=== PATIENT | male | born 1945 | race Caucasian/White ===

== ENCOUNTER 2017-05-30 12:25 | Inpatient (IN) | payer MEDICARE, OTHER ==
[2017-05-30] VITALS (15 sets, daily range): BP systolic 121–154; BP diastolic 61–95; PULSE 89–112; RESP 20–26; TEMP 97.7–98.6; O2SAT 75–98
[~2017-05-30] VITALS: Ht 179.1 cm; Wt 107.3 kg
[2017-05-30] MEDS ORDERED: SODIUM CHLORIDE 0.9% FLUSH 10 ML FLUSH IVF PRN (12:45)
[2017-05-30] MEDS ORDERED: METF500T PO (13:02)
[2017-05-30] MEDS ORDERED: MELO15TA20 PO (13:02)
[2017-05-30] MEDS ORDERED: LISI10TA3 PO (13:02)
[2017-05-30] MEDS ORDERED: VITATAB11 PO (13:02)
[2017-05-30] MEDS ORDERED: JUICE PLUS PO (13:02)
[2017-05-30] MEDS ORDERED: VITA2000 PO (13:02)
[2017-05-30] MEDS ORDERED: GABA600T PO (13:02)
[2017-05-30] MEDS ORDERED: ASPI-516 CHEW (13:02)
[2017-05-30] MEDS ORDERED: OCUVTAB4 PO (13:02)
[2017-05-30] MEDS ORDERED: LIVA2TAB PO (13:02)
--- NOTE | 2017-05-30 13:03 | RADRPT ---
EXAM DATE/TIME: 05/30/2017 12:47 [facility] COMPARISON: No previous studies available for comparison. INDICATIONS : Chest pain with some shortness of breath. MEDICAL HISTORY : None. SURGICAL HISTORY : None. ENCOUNTER: Initial ACUITY: 1 day PAIN SCORE: 7/10 LOCATION: Bilateral upper chest FINDINGS: A single view of the chest demonstrates the lungs to be symmetrically aerated without evidence of mas s, infiltrate or effusion. The cardiomediastinal contours are unremarkable. Osseous structures are intact. There is a left-sided implantable port catheter in place with the tip projected over the supe rior vena cava. Atherosclerotic calcifications are present in the aorta. There is a calcified left hi lar lymph node. There is a calcified granuloma projected over the left lung base. CONCLUSION: No acute disease. Oh Kelly MD on May 30, 2017 at 13:00 Board Certified Radiologist. This report was verified electronically.
[2017-05-30 13:16] LABS: AUTOMATED NEUTROPHIL # 5.8 TH/MM3 (1.8-7.7); BASOPHIL % 0.5 % (0.0-2.0); EOSINOPHIL # 0.2 TH/MM3 (0-0.4); EOSINOPHIL % 2.8 % (0.0-4.0); HEMATOCRIT 43.8 % (39.0-51.0); HEMOGLOBIN 14.6 GM/DL (13.0-17.0); LYMPH % 6.9 % (9.0-44.0); LYMPHOCYTE # 0.5 TH/MM3 (1.0-4.8); MEAN CELL VOLUME 91.9 FL (80.0-100.0); MEAN CORPUSCULAR HEMOGLOBIN 30.6 PG (27.0-34.0); MEAN CORPUSCULAR HGB CONC 33.3 % (32.0-36.0); MEAN PLATELET VOLUME 8.1 FL (7.0-11.0); MONO % 8.7 % (0.0-8.0); MONOCYTE # 0.6 TH/MM3 (0-0.9); NEUT % 81.1 % (16.0-70.0); PLATELET COUNT 115 TH/MM3 (150-450); RED BLOOD COUNT 4.77 MIL/MM3 (4.50-5.90); RED CELL DISTRIBUTION WIDTH 14.1 % (11.6-17.2); WHITE BLOOD COUNT 7.1 TH/MM3 (4.0-11.0)
[2017-05-30 13:40] LABS: ALBUMIN 3.5 GM/DL (3.4-5.0); AST (GOT) 33 U/L (15-37); BICARBONATE 29.8 MEQ/L (21.0-32.0); BLOOD UREA NITROGEN 15 MG/DL (7-18); CHLORIDE 98 MEQ/L (98-107); CREATININE 0.87 MG/DL (0.60-1.30); GLOMERULAR FILTRATION RATE 87 ML/MIN (>89); GLUCOSE,RANDOM 192 MG/DL (74-106); SODIUM (NA) 136 MEQ/L (136-145)
[2017-05-30 13:41] LABS: ALT (GPT) 48 U/L (12-78)
[2017-05-30 13:45] LABS: ALKALINE PHOSPHATASE 76 U/L (45-117); TOTAL PROTEIN 6.4 GM/DL (6.4-8.2); TROPONIN I 0.13 NG/ML (0.02-0.05)
[2017-05-30 13:47] LABS: D-DIMER 11.07 MG/L FEU (0.00-0.50)
[2017-05-30] MEDS ORDERED: IOHEXOL 350 MG/ML 10 ML VIAL (for RAD DIAG) IVCONTRAST ONE (14:28)
--- NOTE | 2017-05-30 14:35 | RADRPT ---
EXAM DATE/TIME: 05/30/2017 14:23 [facility] COMPARISON: CHEST SINGLE AP, May 30, 2017, 12:47. INDICATIONS : Short of breath. IV CONTRAST: 75 cc Omnipaque 350 (iohexol) IV RADIATION DOSE: 23.28 CTDIvol (mGy) MEDICAL HISTORY : Diabetes mellitus type 2. Cardiovascular disease Lymphoma.Prostate cancer. SURGICAL HISTORY : Prostatectomy. ENCOUNTER: Initial ACUITY: 1 day PAIN SCALE: 4/10 LOCATION: Bilateral chest TECHNIQUE: Volumetric scanning of the chest was performed using a pulmonary embolism protocol MIP images were re constructed. Using automated exposure control and adjustment of the mA and/or kV according to patien t size, radiation dose was kept as low as reasonably achievable to obtain optimal diagnostic quality images. DICOM format image data is available electronically for review and comparison. Follow-up recommendations for detected pulmonary nodules are based at a minimum on nodule size and pa tient risk factors according to Fleischner Society Guidelines. FINDINGS: PULMONARY ARTERIES: There is extensive pulmonary embolization with extension across the right and left pulmonary arteries with sagittal embolization on the right extending into the lower lobe and upper lobe pulmonary arter ies and on the left extending into the lower lobe pulmonary artery. LUNGS: There is no consolidation or pneumothorax . No concerning pulmonary nodule is visualized. PLEURAE: There is no pleural thickening or pleural effusion. MEDIASTINUM: There is good visualization of the great vessels of the middle mediastinum. No evidence of mediastin al or hilar adenopathy/mass. MUSCULOSKELETAL: Within normal limits for patient age. MISCELLANEOUS: The visualized upper abdominal organs demonstrate no acute abnormality. CONCLUSION: Bilateral and saddle pulmonary emboli. These extend into all branches on the right and the left lower lobe pulmonary artery. Avery Ortiz MD on May 30, 2017 at 14:30 Board Certified Radiologist. This report was verified electronically.
[2017-05-30] MEDS ORDERED: SODIUM CHLOR 0.9% 1000 ML INJ 1,000 ML IV SCH (14:54)
[2017-05-30] MEDS ORDERED: HEPARIN-D5W 25,000 U/250 ML 250 ML IV PRN (15:00)
[2017-05-30] MEDS ORDERED: RESP: ALBUTEROL 2.5 MG/3 ML NEB (PRN) INH (15:00)
[2017-05-30] MEDS ORDERED: MISCELLANEOUS NURSING INFORMATION XX SCH ×2 (15:00→16:15)
[2017-05-30] MEDS ORDERED: SODIUM CHLORIDE 0.9% FLUSH 10 ML FLUSH IV FLUSH PRN ×2 (15:00→16:30)
[2017-05-30] MEDS ORDERED: HEPARIN SODIUM - IV 10,000 UNITS/10 ML VIAL IV ONE (15:00)
[2017-05-30] MEDS ORDERED: CHLORHEXIDINE GLUCONATE 2 % 1 PACK (2 CLOTHS) TOP PRN ×2 (15:00→16:15)
[2017-05-30] MEDS: RESP: ALBUTEROL 2.5 MG/IPRATROPIUM 0.5 MG NEB (SCH) NEB ×3 (15:45→20:56)
--- NOTE | 2017-05-30 15:54 | PD ---
HPI Chief Complaint: Respiratory Distress Time Seen by Provider: 12:32 Travel History International Travel<30 days: No Contact w/Intl Traveler<30days: No Traveled to known affect area: No History of Present Illness HPI This is a 72-year-old male who presents to the emergency department with acute onset of shortness of breath that started this morning when he was getting ready to go golfing described as difficulty breathing, constant, severe with no associated chest pain, worse with exertion. Patient did travel from [place] 3 weeks ago by car. He also has a history of Hodgkin's lymphoma and prostate cancer currently in remission. Patient does acknowledge some cramping in his calf. PFSH Past Medical History Cancer: Yes (NON-HODGKINS LYMPHOMA, PROSTATE) Cardiovascular Problems: Yes High Cholesterol: Yes Chemotherapy: Yes Diabetes: Yes Patient Takes Glucophage: Yes Diminished Hearing: No Kidney Stones: Yes Medical other: Yes (ABD HERNIA) Pneumonia: Yes Radiation Therapy: Yes Past Surgical History Other Surgery: Yes (PROSTATE REMOVED-2014, PORT PLACED) Social History Alcohol Use: No Tobacco Use: No Substance Use: No Allergies-Medications (Allergen,Severity, Reaction): Coded Allergies: Penicillins (Verified Allergy, Severe, 05/30/17) Reported Meds & Prescriptions Reported Meds & Active Scripts Active Reported [Juice Plus] 6 Tab PO DAILY Meloxicam 15 Mg Tab 15 Mg PO DAILY Livalo (Pitavastatin) 2 Mg Tab 2 Mg PO EVERY OTHER DAY Gabapentin 600 Mg Tab 600 Mg PO BID Vitamin B Complex (B-Complex Vitamins) 1 Tab 1 Tab PO BID Metformin (Metformin HCl) 500 Mg Tab 250 Mg PO BIDPC Vitamin D3 (Cholecalciferol) 2,000 Unit Cap 2,000 Units PO BID Aspirin 81 Mg Chew 81 Mg CHEW HS Preservision Areds (Multiple Vitamins W/ Minerals) 1 Tab 1 Tab PO DAILY Lisinopril 10 Mg Tab 10 Mg PO DAILY Review of Systems Except as stated in HPI: all other systems reviewed are Neg Physical Exam Narrative GENERAL: Moderate respiratory distress SKIN: Focused skin assessment warm and dry. HEAD: Atraumatic. Normocephalic. EYES: Pupils equal and round. No injection or drainage. ENT: Moist mucous membranes NECK: Trachea midline. CARDIOVASCULAR: Regular rate and rhythm. No murmur appreciated. RESPIRATORY: Tachypneic, speaking 3-4 word sentences, using accessory muscles GASTROINTESTINAL: Abdomen soft, non-tender, nondistended. MUSCULOSKELETAL: No obvious deformities. NEUROLOGICAL: Awake and alert. No obvious cranial nerve deficits. Moving all extremities. PSYCHIATRIC: Appropriate mood and affect; insight and judgment normal. Data Data Last Documented VS Vital Signs Date Time Temp Pulse Resp B/P (MAP) Pulse Ox O2 Delivery O2 Flow Rate FiO2 05/30/17 14:49 89 22 121/72 (88) 98 Nasal Cannula 4.00 05/30/17 12:29 97.7 Orders Orders Electrocardiogram (05/30/17 12:42) Complete Blood Count With Diff (05/30/17 12:42) Comprehensive Metabolic Panel (05/30/17 12:42) D-Dimer (05/30/17 12:42) Prothrombin Time / Inr (Pt) (05/30/17 12:42) Act Partial Throm Time (Ptt) (05/30/17 12:42) Troponin I (05/30/17 12:42) Chest, Single Ap (05/30/17 12:42) Ecg Monitoring (05/30/17 12:42) Bilateral Bp Monitoring (05/30/17 12:42) Iv Access Insert/Monitor (05/30/17 12:42) Oximetry (05/30/17 12:42) Oxygen Administration (05/30/17 12:42) Sodium Chloride 0.9% Flush (Ns Flush) (05/30/17 12:45) Ct Pulmonary Angiogram (05/30/17 12:42) Iohexol 350 Inj (Omnipaque 350 Inj) (05/30/17 14:28) Heparin Inj (Heparin Inj) (05/30/17 15:00) Heparin-D5w 25,000 U/250 Ml (Heparin-D5w (05/30/17 15:00) Act Partial Throm Time (Ptt) (05/30/17 14:49) Cbc No Diff, Includes Plts (05/30/17 14:49) Cbc No Diff, Includes Plts (06/02/17 06:00) Act Partial Throm Time (Ptt) (05/30/17 21:49) Occult Blood (Hemoccult) Stool (05/30/17 14:49) Echo 2d Comp With Doppler (05/30/17 ) Admit Order (Ed Use Only) (05/30/17 14:53) Labs Laboratory Tests Test 05/30/17 12:45 White Blood Count 7.1 TH/MM3 Red Blood Count 4.77 MIL/MM3 Hemoglobin 14.6 GM/DL Hematocrit 43.8 % Mean Corpuscular Volume 91.9 FL Mean Corpuscular Hemoglobin 30.6 PG Mean Corpuscular Hemoglobin Concent 33.3 % Red Cell Distribution Width 14.1 % Platelet Count 115 TH/MM3 Mean Platelet Volume 8.1 FL Neutrophils (%) (Auto) 81.1 % Lymphocytes (%) (Auto) 6.9 % Monocytes (%) (Auto) 8.7 % Eosinophils (%) (Auto) 2.8 % Basophils (%) (Auto) 0.5 % Neutrophils # (Auto) 5.8 TH/MM3 Lymphocytes # (Auto) 0.5 TH/MM3 Monocytes # (Auto) 0.6 TH/MM3 Eosinophils # (Auto) 0.2 TH/MM3 Basophils # (Auto) 0.0 TH/MM3 CBC Comment DIFF FINAL Differential Comment Prothrombin Time 10.0 SEC Prothromb Time International Ratio 1.0 RATIO Activated Partial Thromboplast Time 21.9 SEC D-Dimer Quantitative (PE/DVT) 11.07 MG/L FEU Blood Urea Nitrogen 15 MG/DL Creatinine 0.87 MG/DL Random Glucose 192 MG/DL Total Protein 6.4 GM/DL Albumin 3.5 GM/DL Calcium Level 9.0 MG/DL Alkaline Phosphatase 76 U/L Aspartate Amino Transf (AST/SGOT) 33 U/L Alanine Aminotransferase (ALT/SGPT) 48 U/L Total Bilirubin 1.0 MG/DL Sodium Level 136 MEQ/L Potassium Level 3.9 MEQ/L Chloride Level 98 MEQ/L Carbon Dioxide Level 29.8 MEQ/L Anion Gap 8 MEQ/L Estimat Glomerular Filtration Rate 87 ML/MIN Troponin I 0.13 NG/ML [facility] Medical Decision Making Medical Screen Exam Complete: Yes Emergency Medical Condition: Yes Interpretation(s) No leukocytosis Thrombocytopenia Electrolytes are reassuring Troponin is 0.13 D-dimer is 11 Last 24 hours Impressions Chest X-Ray 05/30/17 1242 Signed Impressions: Service Date/Time: Tuesday, May 30, 2017 12:47 - CONCLUSION: No acute disease. Oh Kelly MD CT Angiography 05/30/17 1242 Signed Impressions: Service Date/Time: Tuesday, May 30, 2017 14:23 - CONCLUSION: Bilateral and saddle pulmonary emboli. These extend into all branches on the right and the left lower lobe pulmonary artery. Avery Ortiz MD Differential Diagnosis Pulmonary embolism, pneumonia, pleural effusion, pneumothorax, myocardial infarction Narrative Course This is a 72-year-old male who presents to the emergency department with signs and symptoms classic for pulmonary embolism. He was placed on a monitor established. He was hypoxic and initially in moderate respiratory distress but improved with supplemental oxygen. Labs demonstrate a d-dimer of 11 and an elevated troponin. CT pulmonary angiogram demonstrates a saddle embolus. Patient was started on heparin. He will be admitted to the intensive care unit for further management. A stat echo was obtained to evaluate for right heart strain. Critical Care Narrative Aggregate critical care time was 45 minutes. Time to perform other separately billable procedures was not included in the critical care time. My time did not include minutes spent treating any other patients simultaneously or on activities that did not directly contribute to the patient's treatment. The services I provided to this patient were to treat and/or prevent clinically significant deterioration that could result in: disability, I provided critical care services requiring my management, as noted below: Chart data review, documentation time, medication orders and management, vital sign assessments/reviewing monitor data, ordering and reviewing lab tests, ordering and interpreting/reviewing x-rays and diagnostic studies, care of the patient and discussion of the patient with the admitting physicians. Physician Communication Physician Communication Discussed with Dr. Norris Diagnosis Primary Impression: Saddle pulmonary embolus Qualified Codes: I26.92 - Saddle embolus of pulmonary artery without acute cor pulmonale Admitting Information Admitting Physician Requests: Admit Mary Faust MD May 30, 2017 15:54
[2017-05-30] MEDS ORDERED: BISACODYL 10 MG SUPP RECTAL PRN (16:15)
[2017-05-30] MEDS ORDERED: MAGNESIUM HYDROXIDE SUSP 30 ML CUP PO PRN (16:15)
[2017-05-30] MEDS ORDERED: MORPHINE SULFATE 2 MG/ML INJ IV PUSH PRN (16:15)
[2017-05-30] MEDS ORDERED: SENNOSIDES 8.6 MG TAB PO PRN (16:15)
[2017-05-30] MEDS ORDERED: RESP: ALBUTEROL 2.5 MG/IPRATROPIUM 0.5 MG NEB (PRN) INH (16:15)
[2017-05-30] MEDS ORDERED: ONDANSETRON HCL 4 MG/2 ML VIAL IV PUSH PRN (16:15)
[2017-05-30] MEDS ORDERED: LACTULOSE SYRUP 20 GM/30 ML CUP PO PRN (16:15)
--- NOTE | 2017-05-30 16:19 | ECHRPT ---
Indication: Chronic pulmonary embolism CONCLUSIONS Normal left ventricular size and wall thickness. The left ventricular systolic function is normal wi th an estimated ejection fraction in the range of 60-65%. Normal wall motion. Upper normal right ventricular size with normal systolic function. There is mild tricuspid valve regurgitation. The estimated pulmonary arterial pressure is 35 mmHg. BP: / HR: 95 Rhythm: Other MEASUREMENTS (Male / Female) Normal Values Technical Quality:Fair 2D ECHO LV Diastolic Diameter PLAX 4.5 cm 4.2 - 5.9 / 3.9 - 5.3 cm LV Systolic Diameter PLAX 3.7 cm IVS Diastolic Thickness 1.2 cm 0.6 - 1.0 / 0.6 - 0.9 cm LVPW Diastolic Thickness 1.1 cm 0.6 - 1.0 / 0.6 - 0.9 cm LV Relative Wall Thickness 0.5 LVOT Diameter 2.0 cm M-MODE Aortic Root Diameter MM 3.3 cm LA Systolic Diameter MM 3.6 cm LA Ao Ratio MM 1.1 AV Cusp Separation MM 2.2 cm DOPPLER AV Peak Velocity 118.0 cm/s AV Peak Gradient 5.6 mmHg LVOT Peak Velocity 71.1 cm/s LVOT Peak Gradient 2.0 mmHg AV Area Cont Eq pk 1.9 cm TR Peak Velocity 250.0 cm/s TR Peak Gradient 25.0 mmHg Right Atrial Pressure 10.0 mmHg Pulmonary Artery Systolic Pressu 35.0 mmHg Right Ventricular Systolic Press 35.0 mmHg PV Peak Velocity 85.5 cm/s PV Peak Gradient 2.9 mmHg FINDINGS LEFT VENTRICLE Normal left ventricular size and wall thickness. The left ventricular systolic function is normal wi th an estimated ejection fraction in the range of 60-65%. Normal wall motion. RIGHT VENTRICLE Upper normal right ventricular size with normal systolic function. LEFT ATRIUM The left atrial size is normal. RIGHT ATRIUM The right atrial size is normal. ATRIAL SEPTUM Normal atrial septal thickness without atrial level shunting by limited color doppler interrogation. AORTA The aortic root and proximal ascending aorta are normal in size on limited imaging. MITRAL VALVE Structurally normal mitral valve. No mitral valve stenosis or regurgitation. AORTIC VALVE Trileaflet aortic valve. No aortic valve stenosis or regurgitation. TRICUSPID VALVE There is mild tricuspid valve regurgitation. The estimated pulmonary arterial pressure is 35 mmHg. PULMONARY VALVE No pulmonary valve regurgitation or stenosis. VESSELS The inferior vena cava is normal in size. [id number]* PERICARDIUM There is a small pericardial effusion present. Siddhartha Merida MD (Electronically Signed) Final Date:30 May 2017 16:18
[2017-05-30] MEDS ORDERED: ALTEPLASE INJ 50 MG in WATER STERILE FOR INJ 100 ML IV ONE ×2 (16:30→17:45)
[2017-05-30] MEDS ORDERED: MISCELLANEOUS NURSING INFORMATION OTHER PRN (16:30)
[2017-05-30] MEDS: SODIUM CHLOR 0.9% 1000 ML INJ 1,000 ML IV SCH ×2 (16:30→18:30)
--- NOTE | 2017-05-30 17:02 | HHI.HP ---
HPI Service Critical Care Medicine Primary Care Physician Non-Staff Admission Diagnosis saddle pulmonary embolus Diagnosis: (1) Saddle pulmonary embolus Diagnosis: Principal (2) Right ventricular dilation, secondary Diagnosis: Principal (3) Tricuspid regurgitation Diagnosis: Principal Chief Complaint: Near syncope, SOB. Travel History International Travel<30 Days: No Contact w/Intl Traveler <30 Da: No Traveled to Known Affected Are: No History of Present Illness 72 y/o man developed near syncope this morning associated with new shortness of breath with exertion. Arrived to ED normotensive. CTA chest reveals submassive saddle embolism with tails involving 4 of 5 lung lobes. The right ventricle is dilated and ECHO shows tricuspid regurgitation. Trop minimally elevated. D- Dimer 11. Review of Systems ROS SOB with walking. No chest pain. Left calf cramping. Past Family Social History Allergies: Coded Allergies: Penicillins (Verified Allergy, Severe, 05/30/17) Past Medical History Past Medical History Cancer: Yes (NON-HODGKINS LYMPHOMA, PROSTATE) Cardiovascular Problems: Yes High Cholesterol: Yes Chemotherapy: Yes Diabetes: Yes Patient Takes Glucophage: Yes Diminished Hearing: No Kidney Stones: Yes Medical other: Yes (ABD HERNIA) Pneumonia: Yes Radiation Therapy: Yes Past Surgical History Other Surgery: Yes (PROSTATE REMOVED-2014, PORT PLACED) Social History Alcohol Use: No Tobacco Use: No Substance Use: No Allergies-Medications Allergies-Medications (Allergen,Severity, Reaction): Coded Allergies: Penicillins (Verified Allergy, Severe, 05/30/17) Reported Meds & Prescriptions Reported Meds & Active Scripts Active Reported [Juice Plus] 6 Tab PO DAILY Meloxicam 15 Mg Tab 15 Mg PO DAILY Livalo (Pitavastatin) 2 Mg Tab 2 Mg PO EVERY OTHER DAY Gabapentin 600 Mg Tab 600 Mg PO BID Vitamin B Complex (B-Complex Vitamins) 1 Tab 1 Tab PO BID Metformin (Metformin HCl) 500 Mg Tab 250 Mg PO BIDPC Vitamin D3 (Cholecalciferol) 2,000 Unit Cap 2,000 Units PO BID Aspirin 81 Mg Chew 81 Mg CHEW HS Preservision Areds (Multiple Vitamins W/ Minerals) 1 Tab 1 Tab PO DAILY Lisinopril 10 Mg Tab 10 Mg PO DAILY Physical Exam Vital Signs Vital Signs Date Time Temp Pulse Resp B/P (MAP) Pulse Ox O2 Delivery O2 Flow Rate FiO2 05/30/17 16:34 96 Nasal Cannula 5.00 05/30/17 16:10 05/30/17 16:00 92 23 154/92 (112) 98 Nasal Cannula 4.00 05/30/17 15:00 94 21 126/81 (96) 98 Nasal Cannula 4.00 05/30/17 14:49 89 22 121/72 (88) 98 Nasal Cannula 4.00 05/30/17 14:41 75 Room Air 05/30/17 13:00 94 22 126/71 (89) 96 Nasal Cannula 4.00 05/30/17 12:54 95 25 130/95 (107) 95 Nasal Cannula 4.00 130/84 (99) 05/30/17 12:50 Nasal Cannula 4.00 05/30/17 12:50 88 Room Air 05/30/17 12:40 99 26 128/91 (103) 96 Nasal Cannula 4.00 05/30/17 12:35 26 88 Room Air 05/30/17 12:29 97.7 106 24 150/79 (102) 88 Physical Exam Gen: Calm Head: Normal. Neck: Supple. Lungs: Clear. Heart: NL S1S2, RRR, neck veins are full. Abdomen: Soft, nondistended. No guarding. Extremities: Warm, well perfused. Neuro: O X 3, alert, M/S intact Laboratory Laboratory Tests Test 05/30/17 12:45 White Blood Count 7.1 Red Blood Count 4.77 Hemoglobin 14.6 Hematocrit 43.8 Mean Corpuscular Volume 91.9 Mean Corpuscular Hemoglobin 30.6 Mean Corpuscular Hemoglobin Concent 33.3 Red Cell Distribution Width 14.1 Platelet Count 115 Mean Platelet Volume 8.1 Neutrophils (%) (Auto) 81.1 Lymphocytes (%) (Auto) 6.9 Monocytes (%) (Auto) 8.7 Eosinophils (%) (Auto) 2.8 Basophils (%) (Auto) 0.5 Neutrophils # (Auto) 5.8 Lymphocytes # (Auto) 0.5 Monocytes # (Auto) 0.6 Eosinophils # (Auto) 0.2 Basophils # (Auto) 0.0 CBC Comment DIFF FINAL Differential Comment Prothrombin Time 10.0 Prothromb Time International Ratio 1.0 Activated Partial Thromboplast Time 21.9 D-Dimer Quantitative (PE/DVT) 11.07 Blood Urea Nitrogen 15 Creatinine 0.87 Random Glucose 192 Total Protein 6.4 Albumin 3.5 Calcium Level 9.0 Alkaline Phosphatase 76 Aspartate Amino Transf (AST/SGOT) 33 Alanine Aminotransferase (ALT/SGPT) 48 Total Bilirubin 1.0 Sodium Level 136 Potassium Level 3.9 Chloride Level 98 Carbon Dioxide Level 29.8 Anion Gap 8 Estimat Glomerular Filtration Rate 87 Troponin I 0.13 Result Diagram: 05/30/17 1245 05/30/17 1245 Caprini VTE Risk Assessment Caprini VTE Risk Assessment: Mod/High Risk (score >= 2) Caprini Risk Assessment Model Point Value = 1 Point Value = 2 Point Value = 3 Point Value = 5 Age 41-60 Minor surgery BMI > 25 kg/m2 Swollen legs Varicose veins or History of unexplained or recurrent spontaneous Oral contraceptives or hormone replacement Sepsis (< 1 month) Serious lung disease, including pneumonia (< 1 month) Abnormal pulmonary function Acute myocardial infarction Congestive heart failure (< 1 month) History of inflammatory bowel disease Medical patient at bed rest Age 61-74 Arthroscopic surgery Major open surgery (> 45 min) Laparoscopic surgery (> 45 min) Malignancy Confined to bed (> 72 hours) Immobilizing plaster cast Central venous access Age >= 75 History of VTE Family history of VTE Factor V Leiden Prothrombin [id number] Lupus anticoagulant Anticardiolipin antibodies Elevated serum homocysteine Heparin-induced thrombocytopenia Other congenital or acquired thrombophilia Stroke (< 1 month) Elective arthroplasty Hip, pelvis, or leg fracture Acute spinal cord injury (< 1 month) Prophylaxis Regimen Total Risk Factor Score Risk Level Prophylaxis Regimen 0-1 Low Early ambulation 2 Moderate Order ONE of the following: *Sequential Compression Device (SCD) *Heparin 5000 units SQ BID 3-4 Higher Order ONE of the following medications: *Heparin 5000 units SQ TID *Enoxaparin/Lovenox 40 mg SQ daily (WT < 150 kg, CrCl > 30 mL/min) *Enoxaparin/Lovenox 30 mg SQ daily (WT < 150 kg, CrCl > 10-29 mL/min) *Enoxaparin/Lovenox 30 mg SQ BID (WT < 150 kg, CrCl > 30 mL/min) AND/OR *Sequential Compression Device (SCD) 5 or more Highest Order ONE of the following medications: *Heparin 5000 units SQ TID (Preferred with Epidurals) *Enoxaparin/Lovenox 40 mg SQ daily (WT < 150 kg, CrCl > 30 mL/min) *Enoxaparin/Lovenox 30 mg SQ daily (WT < 150 kg, CrCl > 10-29 mL/min) *Enoxaparin/Lovenox 30 mg SQ BID (WT < 150 kg, CrCl > 30 mL/min) AND *Sequential Compression Device (SCD) Assessment and Plan Assessment and Plan Assessment: 1. Submassive saddle pulmonary embolus. 2. RV strain. 3. Tricuspid regurgitation. 4. DM, 2 Plan: 1. Full anticoagulation with heparin. 2. tPA 50 mg iv by protocol. 3. Pepcid bid. 4. Bed rest. 5. No SCDs. 6. Follow APTT - maintain 50 - 80 secs. 7. Reduce heparin to 1000 units/hr during tPA administration. 8. LE ultrasound. Overall impression: Critically ill with acute submassive pulmonary embolism, saddle type. No contraindications for 50% dose thrombolytic. Risks including fatal brain bleed discussed in detail with patient and . They accept. Critical care 47 mins Problem Qualifiers (1) Saddle pulmonary embolus: Qualified Codes: I26.02 - Saddle embolus of pulmonary artery with acute cor pulmonale (2) Tricuspid regurgitation: Qualified Codes: I36.1 - Nonrheumatic tricuspid (valve) insufficiency Parveen Scott MD May 30, 2017 17:02
--- NOTE | 2017-05-30 17:53 | RADRPT ---
EXAM DATE/TIME: 05/30/2017 17:10 [facility] COMPARISON: CT PULMONARY ANGIOGRAM, May 30, 2017, 14:23. INDICATIONS : Bilateral leg swelling. MEDICAL HISTORY : Hypercholesterolemia. Glasses. Kidney stones. Diabetes. Non-hodgkins lymphoma. Prostate cancer. Tracy motherapy. Hernia. SURGICAL HISTORY : Prostatectomy. Port placement. ENCOUNTER: Initial ACUITY: 2 day PAIN SCORE: 4/10 LOCATION: Bilateral legs. TECHNIQUE: Venous ultrasound of the left and right leg was performed from the inguinal ligament to the proximal calf. Real-time, color Doppler and spectral tracing, compression and augmentation techniques were us ed. FINDINGS: RIGHT LEG: There is occlusive thrombus in the peroneal and posterior tibial vein LEFT LEG: There is normal compressibility of the deep venous system from the inguinal region to the proximal ca lf. No echogenic clot is seen in the lumen of the common femoral, femoral, popliteal, and posterior tibial veins. There is a normal response of the venous system to proximal and distal augmentation an d respiration. CONCLUSION: Thrombus right peroneal and posterior tibial vein. Avery Ortiz MD on May 30, 2017 at 17:49 Board Certified Radiologist. This report was verified electronically.
[2017-05-30] MEDS ORDERED: PILL SPLITTER OTHER PRN (18:00)
[2017-05-30] MEDS ORDERED: metFORMIN HCL 500 MG TAB PO SCH (18:00)
[2017-05-30] MEDS: HEPARIN-D5W 25,000 U/250 ML 250 ML IV PRN (19:00)
[2017-05-30 19:11] LABS: HEMATOCRIT 44.3 % (39.0-51.0); HEMOGLOBIN 14.7 GM/DL (13.0-17.0); MEAN CELL VOLUME 91.3 FL (80.0-100.0); MEAN CORPUSCULAR HEMOGLOBIN 30.3 PG (27.0-34.0); MEAN CORPUSCULAR HGB CONC 33.2 % (32.0-36.0); MEAN PLATELET VOLUME 8.2 FL (7.0-11.0); PLATELET COUNT 108 TH/MM3 (150-450); RED BLOOD COUNT 4.85 MIL/MM3 (4.50-5.90); RED CELL DISTRIBUTION WIDTH 14.4 % (11.6-17.2); WHITE BLOOD COUNT 7.9 TH/MM3 (4.0-11.0)
[2017-05-30] MEDS: CHLORHEXIDINE 0.12% (ORAL KIT) 15 ML CUP MT SCH (20:00)
[2017-05-30] MEDS: FAMOTIDINE 20 MG/2 ML VIAL IV PUSH SCH (20:56)
[2017-05-30] MEDS: GABAPENTIN 300 MG CAP PO SCH (20:57)
[2017-05-30] MEDS: SODIUM CHLORIDE 0.9% FLUSH 10 ML FLUSH IV FLUSH SCH (21:00)
[2017-05-30] MEDS ORDERED: FAMOTIDINE 20 MG/2 ML VIAL IV PUSH SCH (21:00)
[2017-05-30] MEDS ORDERED: SODIUM CHLORIDE 0.9% FLUSH 10 ML FLUSH IV FLUSH SCH (21:00)
[2017-05-30] MEDS: VITAMIN B COMPLEX/VIT C TAB PO SCH (21:00)
[2017-05-30] MEDS: CHOLECALCIFEROL (VIT D3) 1000 UNIT TAB PO SCH (21:05)
[2017-05-30] MEDS: DOCUSATE SODIUM 50 MG/SENNA 8.6 MG TAB PO SCH (21:05)
[2017-05-30] MEDS: ACETAMINOPHEN/HYDROcodone 325 MG/5 MG TAB PO PRN (21:39)
[2017-05-30 21:42] LABS: MAGNESIUM 2.1 MG/DL (1.5-2.5)
[2017-05-30 22:02] LABS: TROPONIN I 0.99 NG/ML (0.02-0.05)
[2017-05-31] VITALS (14 sets, daily range): BP systolic 105–154; BP diastolic 50–72; PULSE 74–101; RESP 20–43; TEMP 98.2–98.7; O2SAT 88–94
[2017-05-31] MEDS: SODIUM CHLOR 0.9% 1000 ML INJ 1,000 ML IV SCH ×4 (02:15→12:10)
[2017-05-31 03:15] LABS: AUTOMATED NEUTROPHIL # 6.7 TH/MM3 (1.8-7.7); BASOPHIL # 0.1 TH/MM3 (0-0.2); BASOPHIL % 0.9 % (0.0-2.0); EOSINOPHIL # 0.2 TH/MM3 (0-0.4); EOSINOPHIL % 2.2 % (0.0-4.0); HEMATOCRIT 40.7 % (39.0-51.0); HEMOGLOBIN 13.4 GM/DL (13.0-17.0); LYMPH % 6.1 % (9.0-44.0); LYMPHOCYTE # 0.5 TH/MM3 (1.0-4.8); MEAN CELL VOLUME 91.3 FL (80.0-100.0); MEAN CORPUSCULAR HEMOGLOBIN 30.1 PG (27.0-34.0); MEAN CORPUSCULAR HGB CONC 32.9 % (32.0-36.0); MEAN PLATELET VOLUME 7.5 FL (7.0-11.0); MONO % 9.4 % (0.0-8.0); MONOCYTE # 0.8 TH/MM3 (0-0.9); NEUT % 81.4 % (16.0-70.0); PLATELET COUNT 109 TH/MM3 (150-450); RED BLOOD COUNT 4.46 MIL/MM3 (4.50-5.90); RED CELL DISTRIBUTION WIDTH 14.2 % (11.6-17.2); WHITE BLOOD COUNT 8.2 TH/MM3 (4.0-11.0)
[2017-05-31] MEDS: RESP: ALBUTEROL 2.5 MG/IPRATROPIUM 0.5 MG NEB (SCH) NEB ×4 (03:32→21:14)
[2017-05-31 03:36] LABS: PROTHROMBIN TIME - PATIENT 10.3 SEC (9.8-11.6)
[2017-05-31 03:40] LABS: ALBUMIN 2.9 GM/DL (3.4-5.0); ALKALINE PHOSPHATASE 67 U/L (45-117); ALT (GPT) 38 U/L (12-78); AST (GOT) 24 U/L (15-37); BICARBONATE 31.7 MEQ/L (21.0-32.0); BLOOD UREA NITROGEN 9 MG/DL (7-18); CALCIUM 8.2 MG/DL (8.5-10.1); CHLORIDE 104 MEQ/L (98-107); CREATININE 0.73 MG/DL (0.60-1.30); GLOMERULAR FILTRATION RATE 106 ML/MIN (>89); GLUCOSE,RANDOM 168 MG/DL (74-106); SODIUM (NA) 142 MEQ/L (136-145); TOTAL BILIRUBIN ADULT 0.8 MG/DL (0.2-1.0); TOTAL PROTEIN 5.7 GM/DL (6.4-8.2)
[2017-05-31] MEDS ORDERED: CHLORHEXIDINE GLUCONATE 2 % 1 PACK (2 CLOTHS) TOP SCH (04:00)
[2017-05-31] MEDS: CHLORHEXIDINE GLUCONATE 2 % 1 PACK (2 CLOTHS) TOP SCH (04:00)
[2017-05-31] MEDS: CHLORHEXIDINE 0.12% (ORAL KIT) 15 ML CUP MT SCH ×2 (08:00→20:00)
--- NOTE | 2017-05-31 10:06 | HHI.CCPN ---
Subjective Remarks/Hospital Course 72 y/o man developed near syncope this morning associated with new shortness of breath with exertion. Arrived to ED normotensive. CTA chest reveals submassive saddle embolism with tails involving 4 of 5 lung lobes. The right ventricle is dilated and ECHO shows tricuspid regurgitation. Trop minimally elevated. D- Dimer 11. 05/31: Received tPA last evening, well tolerated. Continue heparin gtt and start coumadin or TSOAC, mobilize to chair. He still requires supplemental O2; may rescan him tomorrow if creatinine is ok. Objective Vital Signs Date Time Temp Pulse Resp B/P (MAP) Pulse Ox O2 Delivery O2 Flow Rate FiO2 05/31/17 09:13 92 Nasal Cannula 4.50 05/31/17 06:00 78 05/31/17 04:00 98.6 26 120/54 (76) Intake and Output 05/31/17 05/31/17 06/01/17 08:00 16:00 00:00 Intake Total 720 ml Output Total 1400 ml Balance -680 ml Result Diagram: 05/31/17 0259 05/31/17 0259 Other Results Laboratory Tests Test 05/30/17 15:28 Blood Gas Puncture Site RT RADIAL Blood Gas Patient Temperature 98.6 Blood Gas HCO3 28 mmol/L (22-26) Blood Gas Base Excess 3.1 mmol/L (-2-2) Blood Gas Oxygen Saturation 96 % (90-100) Arterial Blood pH 7.37 (7.380-7.420) Arterial Blood Partial Pressure CO2 49 mmHg (38-42) Arterial Blood Partial Pressure O2 105 mmHG (61-120) Arterial Blood Oxygen Content 19.2 Vol % (12.0-20.0) Arterial Blood Carboxyhemoglobin 1.3 % (0-4) Arterial Blood Methemoglobin 0.7 % (0-2) Blood Gas Hemoglobin 14.1 G/DL (12.0-16.0) Oxygen Delivery Device NASAL CANNULA Blood Gas Liter Flow 4 L/M Objective Remarks Gen: Calm Head: Normal. Neck: Supple. Airway patent. Lungs: Clear. No wheezes or crackles. Heart: NL S1S2, RRR, neck veins are full. Abdomen: Soft, nondistended. No guarding. BS active. Extremities: Warm, well perfused. Neuro: O X 3, alert, M/S intact A/P Assessment and Plan Assessment: 1. Submassive saddle pulmonary embolus. 2. RV strain. 3. Tricuspid regurgitation. 4. DM, 2 5. RLE DVT. Plan: 1. Full anticoagulation with heparin. 2. tPA 50 mg iv by protocol -> done 3. Pepcid bid. 4. Bed rest. 5. No SCDs. 6. Follow APTT - maintain 50 - 80 secs. 7. Reduce heparin to 1000 units/hr during tPA administration. 8. LE ultrasound. 9. Start Coumadin Overall impression: Remains critically ill with following tPA treatment for acute submassive pulmonary embolism, saddle type. Oxygenation still impaired, may need to restudy. Continue heparin infusion. Critical care 43 mins Parveen Scott MD May 31, 2017 10:06
[2017-05-31] MEDS ORDERED: GLUCAGON 1 MG/ML VIAL OTHER PRN (10:15)
[2017-05-31] MEDS ORDERED: DEXTROSE 50% IN WATER 50 ML VIAL(D50) IV PUSH PRN (10:15)
[2017-05-31] MEDS: SODIUM CHLORIDE 0.9% FLUSH 10 ML FLUSH IV FLUSH SCH ×2 (10:39→20:47)
[2017-05-31] MEDS: FAMOTIDINE 20 MG/2 ML VIAL IV PUSH SCH (10:39)
[2017-05-31] MEDS: VITAMIN B COMPLEX/VIT C TAB PO SCH ×2 (10:40→20:46)
[2017-05-31] MEDS: GABAPENTIN 300 MG CAP PO SCH ×2 (10:40→20:47)
[2017-05-31] MEDS: MELOXICAM 15 MG TAB PO SCH (10:40)
[2017-05-31] MEDS: LISINOPRIL 10 MG TAB PO SCH (10:41)
[2017-05-31] MEDS: CHOLECALCIFEROL (VIT D3) 1000 UNIT TAB PO SCH ×2 (10:41→20:47)
[2017-05-31] MEDS: DOCUSATE SODIUM 50 MG/SENNA 8.6 MG TAB PO SCH ×2 (10:41→20:47)
[2017-05-31] MEDS: MULTIVITAMIN-OPHTHALMIC 1 TAB PO SCH (10:41)
[2017-05-31] MEDS: ACETAMINOPHEN 325 MG TAB PO PRN ×2 (10:41→18:14)
[2017-05-31] MEDS: INSULIN ASPART SUPPLEMENTAL SCALE SQ SCH ×3 (12:00→20:48)
--- NOTE | 2017-05-31 13:05 | EKG ---
Date Performed: 05/30/2017 Time Performed: 12:37:14 PTAGE: 72 years EKG: Sinus rhythm WITH MARKED SINUS ARRHYTHMIA RIGHT BUNDLE BRANCH BLOCK ABNORMAL ECG NO PREVIOUS TRACING DOCTOR: Angel Reeves Interpretating Date/Time 05/31/2017 13:03:52
[2017-05-31] MEDS ORDERED: HEPARIN SODIUM - SQ 10,000 UNITS/ML VIAL SQ ONE (13:45)
[2017-05-31] MEDS ORDERED: HEPARIN SODIUM - IV 10,000 UNITS/10 ML VIAL IV ONE (15:00)
[2017-05-31] MEDS: HEPARIN-D5W 25,000 U/250 ML 250 ML IV PRN (15:45)
[2017-05-31] MEDS ORDERED: WARFARIN SOD 7.5 MG TAB PO SCH (16:00)
[2017-05-31] MEDS ORDERED: ARTIFICIAL TEARS OPTH SOLN 15 ML BTL EACH EYE PRN (16:15)
[2017-05-31] MEDS ORDERED: HEPARIN-D5W 25,000 U/250 ML 250 ML IV PRN (17:15)
[2017-05-31] MEDS: FAMOTIDINE 20 MG TAB PO SCH (20:47)
[2017-05-31] MEDS ORDERED: HEPARIN SODIUM - IV 10,000 UNITS/10 ML VIAL IV PUSH PRN (23:15)
[2017-05-31] MEDS ORDERED: HEPARIN - 10,000 UNITS/ML IV ADDITIVE IV PUSH PRN (23:15)
[2017-06-01] VITALS (14 sets, daily range): BP systolic 106–152; BP diastolic 61–78; PULSE 61–94; RESP 19–25; TEMP 98.4–99.6; O2SAT 91–98
[2017-06-01 03:38] LABS: BICARBONATE 29.9 MEQ/L (21.0-32.0); CREATININE 0.76 MG/DL (0.60-1.30)
[2017-06-01 03:42] LABS: TROPONIN I 0.14 NG/ML (0.02-0.05)
[2017-06-01] MEDS: CHLORHEXIDINE GLUCONATE 2 % 1 PACK (2 CLOTHS) TOP SCH (04:00)
[2017-06-01] MEDS: RESP: ALBUTEROL 2.5 MG/IPRATROPIUM 0.5 MG NEB (SCH) NEB ×4 (04:00→22:16)
[2017-06-01] MEDS: SODIUM CHLOR 0.9% 1000 ML INJ 1,000 ML IV SCH ×2 (06:44→16:18)
[2017-06-01] MEDS: HEPARIN-D5W 25,000 U/250 ML 250 ML IV PRN (06:46)
--- NOTE | 2017-06-01 07:36 | HHI.CCPN ---
Subjective Remarks/Hospital Course 72 y/o man developed near syncope this morning associated with new shortness of breath with exertion. Arrived to ED normotensive. CTA chest reveals submassive saddle embolism with tails involving 4 of 5 lung lobes. The right ventricle is dilated and ECHO shows tricuspid regurgitation. Trop minimally elevated. D- Dimer 11. 05/31: Received tPA last evening, well tolerated. Continue heparin gtt and start coumadin or TSOAC, mobilize to chair. He still requires supplemental O2; may rescan him tomorrow if creatinine is ok. 06/01: Persistent hypoxemia is worrisome for residual pulmonary thrombus. I'll get CTA lungs now, may need catheter directed therapy. APTT is therapeutic. He has never had chest pain throughout this illness. New atrial bigeminy, add beta vicente. Objective Vital Signs Date Time Temp Pulse Resp B/P (MAP) Pulse Ox O2 Delivery O2 Flow Rate FiO2 06/01/17 06:00 61 06/01/17 04:00 98.4 19 110/64 (79) 94 05/31/17 21:14 Nasal Cannula 4.50 Intake and Output 06/01/17 06/01/17 06/02/17 08:00 16:00 00:00 Output Total 900 ml Balance -900 ml Result Diagram: 05/31/179 06/01/17 0250 Objective Remarks Gen: Calm Head: Normal. Neck: Supple. Airway patent. Lungs: Clear. No wheezes or crackles. Mildly labored. Heart: NL S1S2, RRR, neck veins are full. No m,r. Abdomen: Soft, nondistended. No guarding. BS active. Extremities: Warm, well perfused. No edema. Neuro: O X 3, alert, M/S intact. Conversant. A/P Assessment and Plan Assessment: 1. Submassive saddle pulmonary embolus. 2. RV strain. 3. Tricuspid regurgitation. 4. DM, 2 5. RLE DVT. Plan: 1. Full anticoagulation with heparin. 2. tPA 50 mg iv by protocol -> done 3. Pepcid bid. 4. Bed rest. 5. No SCDs. 6. Follow APTT - maintain 40 - 80 secs. 7. Reduce heparin to 1000 units/hr during tPA administration -> resume full dose after. 8. LE ultrasound. 9. Hold oral anticoagulant until hypoxemia resolved. Overall impression: Remains critically ill with following tPA treatment for acute submassive pulmonary embolism, saddle type. Oxygenation remains impaired and thrombus persists, need to restudy. Continue heparin infusion. Consider catheter directed therapy. Discussed with Dr. Jad Flores. Indications, risks (including bleeding and ) and benefits of catheter directed lysis discussed in detail with patient and his . They accept risks and wish for us to proceed. Critical care 45 mins Parveen Scott MD Jun 01, 2017 07:36
[2017-06-01] MEDS ORDERED: PILL SPLITTER OTHER PRN (07:45)
[2017-06-01] MEDS ORDERED: IOHEXOL 350 MG/ML 10 ML VIAL (for RAD DIAG) IVCONTRAST ONE (07:53)
[2017-06-01] MEDS: INSULIN ASPART SUPPLEMENTAL SCALE SQ SCH ×4 (08:00→21:41)
[2017-06-01] MEDS: CHLORHEXIDINE 0.12% (ORAL KIT) 15 ML CUP MT SCH ×2 (08:00→20:00)
--- NOTE | 2017-06-01 08:14 | RADRPT ---
EXAM DATE/TIME: 06/01/2017 07:42 [facility] COMPARISON: No previous studies available for comparison. INDICATIONS : Post TPA for saddle embolism hypoxemia. IV CONTRAST: 66 cc Omnipaque 350 (iohexol) IV RADIATION DOSE: 10.87 CTDIvol (mGy) ; Patient body habitus MEDICAL HISTORY : Cardiovascular disease. Hypercholesterolemia. Renal calculi.Diabetes, prostate ca, chemo, rdiation,sl eep apnea SURGICAL HISTORY : Hernia ENCOUNTER: Subsequent ACUITY: 1 day PAIN SCALE: 0/10 LOCATION: chest TECHNIQUE: Volumetric scanning of the chest was performed using a pulmonary embolism protocol MIP images were re constructed. Using automated exposure control and adjustment of the mA and/or kV according to patien t size, radiation dose was kept as low as reasonably achievable to obtain optimal diagnostic quality images. DICOM format image data is available electronically for review and comparison. Follow-up recommendations for detected pulmonary nodules are based at a minimum on nodule size and pa tient risk factors according to Fleischner Society Guidelines. FINDINGS: There is extensive PE involving the main pulmonary arteries and extending into right upper lobe, bilateral lower lobes right middle lobe branches. Calcified left hilar lymph node is identified. The re is a calcified granuloma left lower lobe and focal hazy parenchymal process is seen in the right u pper lobe could be inflammatory. Underlying COPD is identified. CONCLUSION: Extensive bilateral pulmonary bolus. Vee Schulz MD on June 01, 2017 at 8:10 Board Certified Radiologist. This report was verified electronically.
[2017-06-01] MEDS: DOCUSATE SODIUM 50 MG/SENNA 8.6 MG TAB PO SCH ×2 (09:00→21:18)
[2017-06-01] MEDS: MULTIVITAMIN-OPHTHALMIC 1 TAB PO SCH (09:17)
[2017-06-01] MEDS: FAMOTIDINE 20 MG TAB PO SCH ×2 (09:17→21:17)
[2017-06-01] MEDS: METOPROLOL TARTRATE 25 MG TAB PO SCH ×2 (09:17→21:18)
[2017-06-01] MEDS: SODIUM CHLORIDE 0.9% FLUSH 10 ML FLUSH IV FLUSH SCH ×2 (09:17→21:00)
[2017-06-01] MEDS: MELOXICAM 15 MG TAB PO SCH (09:17)
[2017-06-01] MEDS: GABAPENTIN 300 MG CAP PO SCH ×2 (09:17→21:17)
[2017-06-01] MEDS: VITAMIN B COMPLEX/VIT C TAB PO SCH ×2 (09:17→21:18)
[2017-06-01] MEDS: CHOLECALCIFEROL (VIT D3) 1000 UNIT TAB PO SCH ×2 (09:17→21:17)
[2017-06-01] MEDS: PRAVASTATIN SOD 40 MG TAB PO SCH (09:18)
[2017-06-01] MEDS: LISINOPRIL 10 MG TAB PO SCH (09:18)
[2017-06-01] MEDS ORDERED: MIDAZOLAM HCL 2 MG/2 ML VIAL ONE (11:17)
[2017-06-01] MEDS ORDERED: STERILE WATER FOR INJECTION 10 ML VIAL ONE ×2 (11:58→12:31)
[2017-06-01] MEDS ORDERED: ALTEPLASE RECOMBINANT 2 MG VIAL INTRACATH ONE ×2 (12:40)
[2017-06-01] MEDS ORDERED: IOHEXOL 350 MG/ML 50 ML BTL (for RAD DIAG) IVCONTRAST ONE (12:40)
--- NOTE | 2017-06-01 12:47 | PD.RAD ---
Post Procedure Progress Note Pre Procedure Diagnosis: (1) Right ventricular dilation, secondary (2) Saddle pulmonary embolus Post Procedure Diagnosis: (1) Right ventricular dilation, secondary (2) Saddle pulmonary embolus Procedure Date: Jun 01, 2017 Supervising Radiologist: Michoacano Flores Estimated blood loss: 2cc Anesthesia: Local, Conscious Sedation Plan of Activity Patient Condition: Fair Additional Comments: 72y/o with extensive pulmonary embolus. PT failed systemic TPA infusion. Extensive thrombus noted on follow up CTA. Pt. is oxygen dependant on 5 liters with right ventricular dilation. Crossing 4 Kenyan infusion catheters Placed in the pulmonary arteries. Angio demonstrates continued extensive clot. TPA infusion initiated at 4mg/hr---2mg/hr per side. Will reduce to total dose of 2mg/hr in 4 hours. Case discussed with Dr. Rudd. See PACS Report for procedural detail/treatment Michoacano Flores MD Jun 01, 2017 12:47
--- NOTE | 2017-06-01 12:50 | EKG ---
Date Performed: 06/01/2017 Time Performed: 07:09:44 PTAGE: 72 years EKG: Sinus rhythm with PAC(s). Right bundle branch block Abnormal ECG Compared to PREVIOUS TRACING , ectopy is more frequent. PREVIOUS TRACIN05/30/2017 12.37.14 DOCTOR: Angel Reeves Interpretating Date/Time 06/01/2017 12:49:17
[2017-06-01] MEDS: HEPARIN-D5W 25,000 U/250 ML 250 ML IV SCH ×2 (14:15→19:00)
[2017-06-01] MEDS: Intra-Venous SODIUM CHLORIDE 0.9% IV LINE 1000 ML IV SCH (14:15)
[2017-06-01] MEDS ORDERED: Intra-Venous HEPARIN 1,000 UNITS/500 ML NS (PRN) IV ×2 (14:15)
[2017-06-01 15:54] LABS: AUTOMATED NEUTROPHIL # 6.1 TH/MM3 (1.8-7.7); BASOPHIL # 0.1 TH/MM3 (0-0.2); BASOPHIL % 0.8 % (0.0-2.0); EOSINOPHIL # 0.2 TH/MM3 (0-0.4); EOSINOPHIL % 2.8 % (0.0-4.0); HEMATOCRIT 38.3 % (39.0-51.0); HEMOGLOBIN 12.8 GM/DL (13.0-17.0); LYMPHOCYTE # 0.4 TH/MM3 (1.0-4.8); MEAN CELL VOLUME 92.2 FL (80.0-100.0); MEAN CORPUSCULAR HEMOGLOBIN 30.8 PG (27.0-34.0); MEAN CORPUSCULAR HGB CONC 33.4 % (32.0-36.0); MEAN PLATELET VOLUME 7.8 FL (7.0-11.0); MONO % 5.8 % (0.0-8.0); MONOCYTE # 0.4 TH/MM3 (0-0.9); NEUT % 84.6 % (16.0-70.0); PLATELET COUNT 120 TH/MM3 (150-450); RED BLOOD COUNT 4.16 MIL/MM3 (4.50-5.90); RED CELL DISTRIBUTION WIDTH 14.3 % (11.6-17.2); WHITE BLOOD COUNT 7.2 TH/MM3 (4.0-11.0)
[2017-06-01] MEDS: Intra-Venous ALTEPLASE 10 MG/500 ML NS IV PRN ×6 (18:00→19:01)
[2017-06-01] MEDS: ACETAMINOPHEN/HYDROcodone 325 MG/5 MG TAB PO PRN (19:22)
[2017-06-01 20:01] LABS: AUTOMATED NEUTROPHIL # 5.8 TH/MM3 (1.8-7.7); BASOPHIL % 0.7 % (0.0-2.0); EOSINOPHIL # 0.2 TH/MM3 (0-0.4); EOSINOPHIL % 2.5 % (0.0-4.0); HEMATOCRIT 35.9 % (39.0-51.0); HEMOGLOBIN 11.9 GM/DL (13.0-17.0); LYMPH % 5.6 % (9.0-44.0); LYMPHOCYTE # 0.4 TH/MM3 (1.0-4.8); MEAN CELL VOLUME 91.6 FL (80.0-100.0); MEAN CORPUSCULAR HEMOGLOBIN 30.2 PG (27.0-34.0); MEAN PLATELET VOLUME 7.7 FL (7.0-11.0); MONO % 8.5 % (0.0-8.0); MONOCYTE # 0.6 TH/MM3 (0-0.9); NEUT % 82.7 % (16.0-70.0); PLATELET COUNT 106 TH/MM3 (150-450); RED BLOOD COUNT 3.92 MIL/MM3 (4.50-5.90); RED CELL DISTRIBUTION WIDTH 14.4 % (11.6-17.2)
[2017-06-02] VITALS (11 sets, daily range): BP systolic 124–161; BP diastolic 56–71; PULSE 73–94; RESP 15–27; TEMP 98.2–99.2; O2SAT 90–97
[2017-06-02] MEDS: SODIUM CHLOR 0.9% 1000 ML INJ 1,000 ML IV SCH (00:01)
[2017-06-02 01:09] LABS: AUTOMATED NEUTROPHIL # 5.6 TH/MM3 (1.8-7.7); BASOPHIL % 0.5 % (0.0-2.0); EOSINOPHIL # 0.2 TH/MM3 (0-0.4); EOSINOPHIL % 2.3 % (0.0-4.0); HEMATOCRIT 34.6 % (39.0-51.0); HEMOGLOBIN 11.4 GM/DL (13.0-17.0); LYMPH % 5.8 % (9.0-44.0); LYMPHOCYTE # 0.4 TH/MM3 (1.0-4.8); MEAN CELL VOLUME 91.4 FL (80.0-100.0); MEAN CORPUSCULAR HEMOGLOBIN 30.2 PG (27.0-34.0); MEAN PLATELET VOLUME 7.4 FL (7.0-11.0); MONO % 8.4 % (0.0-8.0); MONOCYTE # 0.6 TH/MM3 (0-0.9); PLATELET COUNT 98 TH/MM3 (150-450); RED BLOOD COUNT 3.79 MIL/MM3 (4.50-5.90); RED CELL DISTRIBUTION WIDTH 14.3 % (11.6-17.2); WHITE BLOOD COUNT 6.7 TH/MM3 (4.0-11.0)
[2017-06-02 02:01] LABS: BANDS 8 % (0-6); BASOPHILS 1 % (0-2); LYMPHOCYTES 4 % (9-44); METAMYELOCYTES 4 % (0-1); MONOCYTES 4 % (0-8); MYELOCYTES 3 % (0-0); POLYS (SEG NEUTROPHILS) 75 % (16-70)
[2017-06-02 02:06] LABS: OVALOCYTES 1+ (NORMAL)
[2017-06-02] MEDS: Intra-Venous ALTEPLASE 10 MG/500 ML NS IV PRN ×2 (03:20)
[2017-06-02] MEDS: CHLORHEXIDINE GLUCONATE 2 % 1 PACK (2 CLOTHS) TOP SCH ×2 (03:21→20:08)
[2017-06-02] MEDS: RESP: ALBUTEROL 2.5 MG/IPRATROPIUM 0.5 MG NEB (SCH) NEB ×4 (03:53→20:46)
[2017-06-02 06:59] LABS: HEMATOCRIT 34.7 % (39.0-51.0); HEMOGLOBIN 11.5 GM/DL (13.0-17.0); MEAN CELL VOLUME 90.9 FL (80.0-100.0); MEAN CORPUSCULAR HEMOGLOBIN 30.1 PG (27.0-34.0); MEAN CORPUSCULAR HGB CONC 33.1 % (32.0-36.0); MEAN PLATELET VOLUME 7.7 FL (7.0-11.0); PLATELET COUNT 96 TH/MM3 (150-450); RED BLOOD COUNT 3.82 MIL/MM3 (4.50-5.90); RED CELL DISTRIBUTION WIDTH 14.5 % (11.6-17.2); WHITE BLOOD COUNT 5.9 TH/MM3 (4.0-11.0)
[2017-06-02] MEDS: INSULIN ASPART SUPPLEMENTAL SCALE SQ SCH ×4 (08:00→20:52)
[2017-06-02] MEDS: CHLORHEXIDINE 0.12% (ORAL KIT) 15 ML CUP MT SCH ×2 (08:00→20:00)
--- NOTE | 2017-06-02 08:09 | RADRPT ---
EXAM DATE/TIME: 06/01/2017 12:30 COMPARISON: THROMBOLYTIC INFUSION, June 01, 2017, 0:00. INDICATIONS : Patient with a history of bilateral saddle pulmonary embolism. MEDICAL HISTORY : Non-Hodgkins lymphoma Prostate cancer High Cholesterol Diabetes Kidney stones SURGICAL HISTORY : Prostate removed ENCOUNTER: Initial ACUITY: 1 day PAIN SCORE: 2/10 LOCATION: Shortness of breath FLUORO TIME: 6.9 minutes IMAGE SERIES: 5 ACCESS SITE: Right Jugular vein SEDATION TIME: 60 minutes CONTRAST: 1.) 40 cc Omnipaque (iohexol) 350 MEDICATION(S): 1.) 2 mg midazolam (Versed) IV 2.) 100 mcg fentanyl (Sublimaze) IV DEVICE(S): 1.) Bilateral Pulmonary artery 4FR X 10CM Infusion catheter FINDINGS: The patient is a 72-year-old with known massive bilateral pulmonary embolus. The patient underwent pe ripheral TPA administration with little if any success. Followup CT scan demonstrated continued exten sive thrombus. Patient is presently oxygen dependent on 5 L with right heart dilation. The risks, benefits and potential complications of TPA thrombolysis for pulmonary embolus were discus sed with the patient and his . Written consent was obtained. The right internal jugular vein was accessed using the micropuncture technique. The micropuncture set was exchanged for a 5 Spanish hemostatic sheath and a 0.035 angle Glidewire. The Glidewire and [place] tein catheter were manipulated into the pulmonary circulation. Pulmonary angiography confirmed continued massive bilateral pulmonary embolus. The Berenstein catheter was exchanged for a 4 Spanish infusion catheter which was passed into the clot in the central pulmonary artery and down into the main vessels feeding the right lower lobe. This seizure was repeated and a second 4 Spanish by 10 cm infusion length catheter was advanced into t he left pulmonary circulation. TPA infusion was initiated at 2 mg per hour per catheter for a total of 4 mg per hour. This will be r educed to 1 mg per catheter per hour after 4 hours infusion time. The patient was sent to the intensive care unit for monitoring. CONCLUSION: 1. Pulmonary angiogram demonstrates continued bilateral pulmonary embolus. 2. 4 Spanish infusion catheters were parked within the pulmonary circulation. TPA infusion was initiat ed as above. Michoacano Flores MD on June 02, 2017 at 8:03 Board Certified Radiologist. This report was verified electronically.
[2017-06-02] MEDS: LISINOPRIL 10 MG TAB PO SCH (08:12)
[2017-06-02] MEDS: METOPROLOL TARTRATE 25 MG TAB PO SCH ×2 (08:12→20:28)
[2017-06-02] MEDS: SODIUM CHLORIDE 0.9% FLUSH 10 ML FLUSH IV FLUSH SCH ×2 (08:18→20:27)
[2017-06-02] MEDS: MELOXICAM 15 MG TAB PO SCH (08:18)
[2017-06-02] MEDS: VITAMIN B COMPLEX/VIT C TAB PO SCH ×2 (08:18→11:17)
--- NOTE | 2017-06-02 09:54 | PD.RAD ---
Post Procedure Progress Note Pre Procedure Diagnosis: (1) Saddle pulmonary embolus Post Procedure Diagnosis: (1) Saddle pulmonary embolus Procedure Date: Jun 02, 2017 Supervising Radiologist: Michoacano Flores Estimated blood loss: none Anesthesia: Local Plan of Activity Patient to Unit: Critical Care Patient Condition: Good Additional Comments: PT post TPA infusion x 24 hours. Follow up pulmonary angio demonstrated resolution of the bilateral pulmonary emboli. Catheters removed. Pt. tolerated the procedure well. Full dictated report to follow. See PACS Report for procedural detail/treatment Michoacano Flores MD Jun 02, 2017 09:54
[2017-06-02] MEDS ORDERED: IODIXANOL 320 MG/ML 50 ML VIAL (for RAD SPEC) IVCONTRAST ONE (10:16)
--- NOTE | 2017-06-02 10:51 | RADRPT ---
EXAM DATE/TIME: 06/02/2017 09:58 [facility] COMPARISON: ANGIOGRAM, PULMONARY BILAT, June 01, 2017, 12:30. INDICATIONS : Patient with a history of bilateral saddle pulmonary embolus. MEDICAL HISTORY : Non-Hodgkins Lymphoma Prostate Cancer Cardiovascular Disease High cholesterol Kidney Stones SURGICAL HISTORY : Prostate removed ENCOUNTER: Subsequent ACUITY: 2 days PAIN SCORE: 3/10 LOCATION: Right neck FLUORO TIME: 2.9 minutes IMAGE SERIES: 7 ACCESS SITE: Right Jugular vein CONTRAST: 1.) 70 cc Visipaque (iodixanol) PROCEDURE : 1. Conscious sedation with continuous EKG and Oximetry monitoring. 2. pulmonary angiography. The patient is 72 year-old with known bilateral pulmonary embolus. The patient had been undergoing TP A infusion for approximately 18 hours. The patient was having some bleeding issues around the cathete r insertion sites in the neck as well as a small amount of bleeding from the nose. The risks, benefits and alternatives to the procedure were explained and verbal and written consent w as obtained. The site was prepped in sterile fashion. Full sterile technique was used, including ca p, mask, sterile gloves and gown and a large sterile sheet. Hand hygiene and 2% chlorhexidine and/or betadine/alcohol prep was utilized per protocol for cutaneous antisepsis. The patient's existing catheter was accessed using sterile technique. A small amount of contrast was instilled through this. There was limited filling of the pulmonary circulation. The infusion catheter was then exchanged for a 4 [place] Omni Flush catheter. This was advanced into t he central pulmonary system and pulmonary angiography was performed. The large central embolus which was evident on previous examinations has resolved. There is now brisk flow through the pulmonary circulation. The procedure was performed in the presence of an independent trained radiology nurse to assist in th e monitoring of the patient. EKG and oximetry remained stable throughout the procedure. CONCLUSION: 1. Successful resolution of the bilateral pulmonary embolic disease. The patient tolerated the proced ure well. The catheters were removed. Michoacano Flores MD on June 02, 2017 at 10:43 Board Certified Radiologist. This report was verified electronically.
[2017-06-02] MEDS: CHOLECALCIFEROL (VIT D3) 1000 UNIT TAB PO SCH ×2 (11:16→20:27)
[2017-06-02] MEDS: MULTIVITAMIN-OPHTHALMIC 1 TAB PO SCH (11:16)
[2017-06-02] MEDS: GABAPENTIN 300 MG CAP PO SCH ×2 (11:16→20:28)
[2017-06-02] MEDS: FAMOTIDINE 20 MG TAB PO SCH ×2 (11:16→20:28)
[2017-06-02] MEDS: DOCUSATE SODIUM 50 MG/SENNA 8.6 MG TAB PO SCH ×2 (11:16→20:28)
--- NOTE | 2017-06-02 12:42 | HHI.CCPN ---
Subjective Remarks/Hospital Course 72 y/o man developed near syncope this morning associated with new shortness of breath with exertion. Arrived to ED normotensive. CTA chest reveals submassive saddle embolism with tails involving 4 of 5 lung lobes. The right ventricle is dilated and ECHO shows tricuspid regurgitation. Trop minimally elevated. D- Dimer 11. 05/31: Received tPA last evening, well tolerated. Continue heparin gtt and start coumadin or TSOAC, mobilize to chair. He still requires supplemental O2; may rescan him tomorrow if creatinine is ok. 06/01: Persistent hypoxemia is worrisome for residual pulmonary thrombus. I'll get CTA lungs now, may need catheter directed therapy. APTT is therapeutic. He has never had chest pain throughout this illness. New atrial bigeminy, add beta vicente. 06/02: Thrombus dissolved. Catheters removed. Start xarelto when OK with IR. Objective Vital Signs Date Time Temp Pulse Resp B/P (MAP) Pulse Ox O2 Delivery O2 Flow Rate FiO2 06/02/17 08:00 98.9 82 15 161/68 (99) 97 06/02/17 07:47 Nasal Cannula 5.00 Intake and Output 06/02/17 06/02/17 06/03/17 08:00 16:00 00:00 Intake Total 1220 ml Output Total 2800 ml Balance -1580 ml Result Diagram: 06/02/17 0624 06/01/17 0250 Objective Remarks Gen: Calm Head: Normal. Neck: Supple. Airway patent. Lungs: Clear. No wheezes or crackles. Non labored. Heart: NL S1S2, RRR, neck veins are full. No m,r. Abdomen: Soft, nondistended. No guarding. BS active. Extremities: Warm, well perfused. No edema. Neuro: O X 3, alert, M/S intact. Conversant. A/P Assessment and Plan Assessment: 1. Submassive saddle pulmonary embolus. 2. RV strain. 3. Tricuspid regurgitation. 4. DM, 2 5. RLE DVT. Plan: 1. Full anticoagulation with heparin. 2. tPA 50 mg iv by protocol -> done 3. Pepcid bid. 4. Bed rest. 5. No SCDs. 6. Follow APTT - maintain 40 - 80 secs. 7. Reduce heparin to 1000 units/hr during tPA administration -> resume full dose after. 8. LE ultrasound. 9. Hold oral anticoagulant until hypoxemia resolved. Overall impression: S/P bilateral catheter treatment for acute submassive pulmonary embolism, saddle type after bolus 50 mg dose did not work. Oxygenation improved and thrombus dissolved. Continue heparin infusion. Start Xarelto after 24 hours. Parveen Scott MD Jun 02, 2017 12:42
[2017-06-02] MEDS: Intra-Venous SODIUM CHLORIDE 0.9% IV LINE 1000 ML IV SCH (13:08)
[2017-06-02] MEDS ORDERED: FUROSEMIDE 20 MG/2 ML VIAL IV PUSH ONE (16:45)
[2017-06-02 17:50] LABS: HEMOGLOBIN 11.9 GM/DL (13.0-17.0); MEAN CELL VOLUME 90.4 FL (80.0-100.0); MEAN CORPUSCULAR HGB CONC 33.2 % (32.0-36.0); RED BLOOD COUNT 3.98 MIL/MM3 (4.50-5.90); RED CELL DISTRIBUTION WIDTH 14.2 % (11.6-17.2); WHITE BLOOD COUNT 6.5 TH/MM3 (4.0-11.0)
[2017-06-02 17:51] LABS: PLATELET COUNT 95 TH/MM3 (150-450)
[2017-06-02] MEDS ORDERED: HEPARIN 25,000 UNITS-D5W 250 ML - PREMIX IV PRN (19:15)
[2017-06-02] MEDS ORDERED: HEPARIN SODIUM - IV 10,000 UNITS/10 ML VIAL IV PUSH PRN ×2 (19:15)
[2017-06-02] MEDS: RIVAROXABAN 15 MG TAB PO SCH (19:35)
[2017-06-03] VITALS (7 sets, daily range): BP systolic 117–131; BP diastolic 61–79; PULSE 66–97; RESP 19–25; TEMP 97.6–98; O2SAT 92–99
[2017-06-03] MEDS: RESP: ALBUTEROL 2.5 MG/IPRATROPIUM 0.5 MG NEB (SCH) NEB ×2 (03:16→07:48)
[2017-06-03] MEDS: CHLORHEXIDINE 0.12% (ORAL KIT) 15 ML CUP MT SCH (07:59)
[2017-06-03] MEDS: INSULIN ASPART SUPPLEMENTAL SCALE SQ SCH (08:00)
[2017-06-03] MEDS: MULTIVITAMIN-OPHTHALMIC 1 TAB PO SCH (09:15)
[2017-06-03] MEDS: LISINOPRIL 10 MG TAB PO SCH (09:16)
[2017-06-03] MEDS: GABAPENTIN 300 MG CAP PO SCH (09:16)
[2017-06-03] MEDS: RIVAROXABAN 15 MG TAB PO SCH (09:17)
[2017-06-03] MEDS: FAMOTIDINE 20 MG TAB PO SCH (09:17)
[2017-06-03] MEDS: VITAMIN B COMPLEX/VIT C TAB PO SCH (09:17)
[2017-06-03] MEDS: CHOLECALCIFEROL (VIT D3) 1000 UNIT TAB PO SCH (09:18)
[2017-06-03] MEDS: PRAVASTATIN SOD 40 MG TAB PO SCH (09:18)
[2017-06-03] MEDS: METOPROLOL TARTRATE 25 MG TAB PO SCH (09:19)
[2017-06-03] MEDS: DOCUSATE SODIUM 50 MG/SENNA 8.6 MG TAB PO SCH (09:19)
[2017-06-03] MEDS: SODIUM CHLORIDE 0.9% FLUSH 10 ML FLUSH IV FLUSH SCH (09:20)
[2017-06-03] MEDS ORDERED: METO25TA3 PO (12:01)
[2017-06-03] MEDS ORDERED: XARE15TA PO (12:01)
--- NOTE | 2017-06-03 12:06 | HHI.DS ---
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 tPA 50 mg and full heparinization 2. Catheter directed tPA infusion into left and right lung clots. Brief History 72 y/o man developed near syncope this morning associated with new shortness of breath with exertion. Arrived to ED normotensive. CTA chest reveals submassive saddle embolism with tails involving 4 of 5 lung lobes. The right ventricle is dilated and ECHO shows tricuspid regurgitation. Trop minimally elevated. D- Dimer 11. CBC/BMP: 06/02/17 1700 06/01/17 0250 Significant Findings Laboratory Tests Test 05/31/17 20:37 06/01/17 02:50 06/01/17 15:15 06/01/17 19:45 Activated Partial Thromboplast Time 35.7 SEC (24.3-30.1) 43.6 SEC (24.3-30.1) 33.4 SEC (24.3-30.1) Random Glucose 168 MG/DL (74-106) Calcium Level 8.0 MG/DL (8.5-10.1) Anion Gap 4 MEQ/L (5-15) Troponin I 0.14 NG/ML (0.02-0.05) Red Blood Count 4.16 MIL/MM3 (4.50-5.90) 3.92 MIL/MM3 (4.50-5.90) Hemoglobin 12.8 GM/DL (13.0-17.0) 11.9 GM/DL (13.0-17.0) Hematocrit 38.3 % (39.0-51.0) 35.9 % (39.0-51.0) Platelet Count 120 TH/MM3 (150-450) 106 TH/MM3 (150-450) Neutrophils (%) (Auto) 84.6 % (16.0-70.0) 82.7 % (16.0-70.0) Lymphocytes (%) (Auto) 6.0 % (9.0-44.0) 5.6 % (9.0-44.0) Lymphocytes # (Auto) 0.4 TH/MM3 (1.0-4.8) 0.4 TH/MM3 (1.0-4.8) Fibrinogen 465 mg/dL (227-377) 419 mg/dL (227-377) Monocytes (%) (Auto) 8.5 % (0.0-8.0) Test 06/01/17 23:45 06/02/17 00:49 06/02/17 06:24 06/02/17 17:00 Fibrinogen 401 mg/dL (227-377) 413 mg/dL (227-377) Red Blood Count 3.79 MIL/MM3 (4.50-5.90) 3.82 MIL/MM3 (4.50-5.90) 3.98 MIL/MM3 (4.50-5.90) Hemoglobin 11.4 GM/DL (13.0-17.0) 11.5 GM/DL (13.0-17.0) 11.9 GM/DL (13.0-17.0) Hematocrit 34.6 % (39.0-51.0) 34.7 % (39.0-51.0) 36.0 % (39.0-51.0) Platelet Count 98 TH/MM3 (150-450) 96 TH/MM3 (150-450) 95 TH/MM3 (150-450) Neutrophils (%) (Auto) 83.0 % (16.0-70.0) Lymphocytes (%) (Auto) 5.8 % (9.0-44.0) Monocytes (%) (Auto) 8.4 % (0.0-8.0) Lymphocytes # (Auto) 0.4 TH/MM3 (1.0-4.8) Neutrophils % (Manual) 75 % (16-70) Band Neutrophils % 8 % (0-6) Lymphocytes % 4 % (9-44) Metamyelocytes 4 % (0-1) Myelocytes 3 % (0-0) Platelet Estimate LOW (NORMAL) Basophilic Stippling FAINT (NORMAL) Ovalocytes 1+ (NORMAL) Test 06/02/17 17:[address] Chest - Saddle pulmonary Embolus PE at Discharge Good. Breathing comfortably, normotensive. Transfer Summary All pulmonary artery clots completely dissolved by thrombolytic therapy. Converted from heparin infusion to xarelto. Hospital Course 72 y/o man developed near syncope this morning associated with new shortness of breath with exertion. Arrived to ED normotensive. CTA chest reveals submassive saddle embolism with tails involving 4 of 5 lung lobes. The right ventricle is dilated and ECHO shows tricuspid regurgitation. Trop minimally elevated. D- Dimer 11. 05/31: Received tPA last evening, well tolerated. Continue heparin gtt and start coumadin or TSOAC, mobilize to chair. He still requires supplemental O2; may rescan him tomorrow if creatinine is ok. 06/01: Persistent hypoxemia is worrisome for residual pulmonary thrombus. I'll get CTA lungs now, may need catheter directed therapy. APTT is therapeutic. He has never had chest pain throughout this illness. New atrial bigeminy, add beta vicente. 06/02: Thrombus dissolved. Catheters removed. Start xarelto when OK with IR. Pt Condition on Discharge: Good Discharge Disposition: Discharge Home Discharge Instructions DIET: Follow Instructions for: Diabetic Diet Activities you can perform: Regular-No Restrictions Parveen Scott MD Jun 03, 2017 12:06
== END 2017-06-03 13:02 | disposition home or self-care (01) | DRG 175 ==
LOC: NEPC 12:25 → NEDA 14:55 → N03A 16:25
PROVIDERS: ADMIT Internal Medicine; ATTEND Internal Medicine
PROC: 3E03317 Introduction of Other Thrombolytic into Peripheral Vein, Percutaneous Approach (ICD-10-PCS; 2017-05-30)
PROC: 3E06317 Introduction of Other Thrombolytic into Central Artery, Percutaneous Approach (ICD-10-PCS; principal; 2017-06-01)
PROC: B31T1ZZ Fluoroscopy of Left Pulmonary Artery using Low Osmolar Contrast (ICD-10-PCS; 2017-06-02)
PROC: B31S1ZZ Fluoroscopy of Right Pulmonary Artery using Low Osmolar Contrast (ICD-10-PCS; 2017-06-02)
DX: I26.02 Saddle embolus of pulmonary artery with acute cor pulmonale (principal); R06.03 Acute respiratory distress; I82.441 Acute embolism and thrombosis of right tibial vein; E11.9 Type 2 diabetes mellitus without complications; I36.1 Nonrheumatic tricuspid (valve) insufficiency; R09.02 Hypoxemia; E78.00 Pure hypercholesterolemia, unspecified; Z85.46 Personal history of malignant neoplasm of prostate; Z85.72 Personal history of non-Hodgkin lymphomas; Z79.84 Long term (current) use of oral hypoglycemic drugs
CPT/HCPCS: 36013; 36014; 36216; 36600; 37211; 37213; 71045; 71275; 75743; 76937; 80048; 80053; 82805; 82948; 83735; 83880; 84484; 85007; 85025; 85027; 85379; 85384; 85610; 85730; 87641; 93005; 93306; 93970; 94150; 94640; 94664; 99152; 99153; C1757; C1769; C1887; C1894; J1644; J1815; J1940; J2250; J2997; J3010; J7030; J7040; Q9967

== ENCOUNTER 2017-06-08 11:27 | Inpatient (IN) | payer MEDICARE, OTHER ==
[~2017-06-08] VITALS: Ht 177.8 cm; Wt 102.8 kg
[~2017-06-08 11:27] MED LIST: ASPI-516 CHEW; GABA600T PO; JUICE PLUS PO; LISI10TA3 PO; LIVA2TAB PO; MELO15TA20 PO; METF500T PO; METO25TA3 PO; OCUVTAB4 PO; VITA2000 PO; VITATAB11 PO; XARE15TA PO
[2017-06-08 11:29] VITALS: BP 127/71; PULSE 86; RESP 19; TEMP 98.6; O2SAT 92
[2017-06-08] MEDS ORDERED: ONDANSETRON HCL 4 MG/2 ML VIAL IV PUSH ONE (12:00)
[2017-06-08] MEDS ORDERED: MORPHINE SULFATE 2 MG/ML INJ IV PUSH ONE (12:00)
[2017-06-08] MEDS ORDERED: SODIUM CHLORIDE 0.9% FLUSH 10 ML FLUSH IVF PRN (12:00)
[2017-06-08 12:10] LABS: AUTOMATED NEUTROPHIL # 5.7 TH/MM3 (1.8-7.7); BASOPHIL # 0.1 TH/MM3 (0-0.2); BASOPHIL % 0.9 % (0.0-2.0); EOSINOPHIL # 0.5 TH/MM3 (0-0.4); EOSINOPHIL % 6.3 % (0.0-4.0); HEMATOCRIT 41.5 % (39.0-51.0); HEMOGLOBIN 13.8 GM/DL (13.0-17.0); LYMPH % 10.3 % (9.0-44.0); LYMPHOCYTE # 0.8 TH/MM3 (1.0-4.8); MEAN CELL VOLUME 90.6 FL (80.0-100.0); MEAN CORPUSCULAR HGB CONC 33.1 % (32.0-36.0); MEAN PLATELET VOLUME 7.5 FL (7.0-11.0); MONOCYTE # 0.6 TH/MM3 (0-0.9); NEUT % 74.5 % (16.0-70.0); PLATELET COUNT 212 TH/MM3 (150-450); RED BLOOD COUNT 4.59 MIL/MM3 (4.50-5.90); WHITE BLOOD COUNT 7.7 TH/MM3 (4.0-11.0)
[2017-06-08 12:17] LABS: INTERNATIONAL NORMALIZED RATIO 1.3 RATIO
--- NOTE | 2017-06-08 12:22 | PD ---
HPI . Dyspnea Chief Complaint: Cardiac Complaint Time Seen by Provider: 11:50 Travel History International Travel<30 days: No Contact w/Intl Traveler<30days: No Traveled to known affect area: No History of Present Illness HPI This patient presents with chief complaint of dyspnea. Onset was last night. He suffered a saddle pulmonary embolism on 05/30. He was treated with tPA 2. He was eventually discharged on Xarelto. He states that he had been doing well post discharge until last night when he had recurrence of his dyspnea. Dyspnea was his major complaint with the PE along with near syncope. He states that he does not feel as badly today as he did when he was here on the . He denies any chest pain. No modifying factors. He does endorse weakness. He states that he has had an irregular heartbeat for years. It has never been treated until this recent hospitalization. PFSH Past Medical History Cancer: Yes (Prostate and Non-Hodgkins Lymphomia) Cardiovascular Problems: Yes High Cholesterol: Yes Chemotherapy: Yes Diabetes: Yes Patient Takes Glucophage: No Diminished Hearing: No Kidney Stones: Yes Pneumonia: Yes Radiation Therapy: Yes Sleep Apnea: Yes (mod to severe) Past Surgical History Other Surgery: Yes (PROSTATE REMOVED-2014, PORT PLACED) Social History Alcohol Use: No Tobacco Use: No Substance Use: No Allergies-Medications (Allergen,Severity, Reaction): Coded Allergies: Penicillins (Verified Allergy, Severe, 06/08/17) Reported Meds & Prescriptions Reported Meds & Active Scripts Active Metoprolol Tartrate 25 Mg Tab 25 Mg PO Q12HR 60 Days Xarelto (Rivaroxaban) 15 Mg Tab 15 Mg PO BID Take one 15 mg tab po BID for 21 days, then take 20 mg po qday for 6 months. Reported [Juice Plus] 6 Tab PO DAILY Meloxicam 15 Mg Tab 15 Mg PO DAILY Livalo (Pitavastatin) 2 Mg Tab 2 Mg PO EVERY OTHER DAY Gabapentin 600 Mg Tab 300 Mg PO QID Vitamin B Complex (B-Complex Vitamins) 1 Tab 1 Tab PO BID Metformin (Metformin HCl) 500 Mg Tab 250 Mg PO BIDPC Vitamin D3 (Cholecalciferol) 2,000 Unit Cap 2,000 Units PO BID Lisinopril 10 Mg Tab 10 Mg PO DAILY Review of Systems Except as stated in HPI: all other systems reviewed are Neg Cardiovascular: No: Chest Pain or Discomfort Respiratory: Positive: Shortness of Breath, No: Cough Neurologic: Positive: Weakness Physical Exam Narrative GENERAL: Awake and alert. SKIN: warm/dry. Pale. HEAD: Normocephalic. Atraumatic. EYES: Pupils equal and round. No scleral icterus. No injection or drainage. ENT: No nasal bleeding or discharge. Mucous membranes pink and moist. NECK: Trachea midline. Full range of motion without pain.. CARDIOVASCULAR: Regular rate and rhythm. He has frequent PACs. RESPIRATORY: No accessory muscle use. Clear to auscultation. Breath sounds equal bilaterally. O2 sats on 2 L of oxygen were 92%. GASTROINTESTINAL: Abdomen soft. Nontender. Bowel sounds present. Nondistended. MUSCULOSKELETAL: No obvious deformities. NEUROLOGICAL: Awake and alert. No obvious cranial nerve deficits. Motor grossly within normal limits. Normal speech. PSYCHIATRIC: Appropriate mood and affect; insight and judgment normal. Data Data Last Documented VS Vital Signs Date Time Temp Pulse Resp B/P (MAP) Pulse Ox O2 Delivery O2 Flow Rate FiO2 06/08/17 16:13 75 18 128/75 (92) 94 Nasal Cannula 3.00 06/08/17 11:29 98.6 Orders Orders Electrocardiogram (06/08/17 ) Complete Blood Count With Diff (06/08/17 11:50) Basic Metabolic Panel (Bmp) (06/08/17 11:50) Act Partial Throm Time (Ptt) (06/08/17 11:50) Prothrombin Time / Inr (Pt) (06/08/17 11:50) Troponin I (06/08/17 11:50) Iv Access Insert/Monitor (06/08/17 11:50) Ecg Monitoring (06/08/17 11:50) Oximetry (06/08/17 11:50) Oxygen Administration (06/08/17 11:50) Ct Pulmonary Angiogram (06/08/17 11:50) Sodium Chloride 0.9% Flush (Ns Flush) (06/08/17 12:00) Morphine Inj (Morphine Inj) (06/08/17 12:00) Ondansetron Inj (Zofran Inj) (06/08/17 12:00) Iohexol 350 Inj (Omnipaque 350 Inj) (06/08/17 14:11) Furosemide Inj (Lasix Inj) (06/08/17 15:30) B-Type Natriuretic Peptide (06/08/17 15:18) Admit Order (Ed Use Only) (06/08/17 ) Commercial Litigation Paralegal / Telemetry YAMILA.Q8H (06/08/17 17:31) Vital Signs (Adult) Q4H (06/08/17 17:31) Diet Heart Healthy (06/08/17 Dinner) Activity Oob With Assistance (06/08/17 17:31) Notify Dr: Other (06/08/17 17:31) Labs Laboratory Tests Test 06/08/17 11:55 White Blood Count 7.7 TH/MM3 Red Blood Count 4.59 MIL/MM3 Hemoglobin 13.8 GM/DL Hematocrit 41.5 % Mean Corpuscular Volume 90.6 FL Mean Corpuscular Hemoglobin 30.0 PG Mean Corpuscular Hemoglobin Concent 33.1 % Red Cell Distribution Width 15.0 % Platelet Count 212 TH/MM3 Mean Platelet Volume 7.5 FL Neutrophils (%) (Auto) 74.5 % Lymphocytes (%) (Auto) 10.3 % Monocytes (%) (Auto) 8.0 % Eosinophils (%) (Auto) 6.3 % Basophils (%) (Auto) 0.9 % Neutrophils # (Auto) 5.7 TH/MM3 Lymphocytes # (Auto) 0.8 TH/MM3 Monocytes # (Auto) 0.6 TH/MM3 Eosinophils # (Auto) 0.5 TH/MM3 Basophils # (Auto) 0.1 TH/MM3 CBC Comment AUTO DIFF Differential Comment AUTO DIFF CONFIRMED Platelet Estimate NORMAL Platelet Morphology Comment NORMAL Red Cell Morphology Comment NORMAL Prothrombin Time 13.0 SEC Prothromb Time International Ratio 1.3 RATIO Activated Partial Thromboplast Time 30.4 SEC Blood Urea Nitrogen 15 MG/DL Creatinine 1.07 MG/DL Random Glucose 316 MG/DL Calcium Level 8.8 MG/DL Sodium Level 134 MEQ/L Potassium Level 4.3 MEQ/L Chloride Level 100 MEQ/L Carbon Dioxide Level 25.3 MEQ/L Anion Gap 9 MEQ/L Estimat Glomerular Filtration Rate 68 ML/MIN Troponin I LESS THAN 0.02 NG/ML MDM Medical Decision Making Medical Screen Exam Complete: Yes Emergency Medical Condition: Yes Medical Record Reviewed: Yes (patient was admitted here on 05/30 for saddle PE. He had a subsequent echo which showed tricuspid regurgitation and right ventricular dilatation. He had atrial bigeminy and was started on metoprolol. He was discharged home on Xarelto as well as metoprolol.) Interpretation(s) EKG shows a sinus rhythm. He has a right bundle branch block. This is unchanged from his recent hospitalization. Differential Diagnosis Differential diagnosis of dyspnea includes but is not limited to congestive heart failure, pneumonia, wheezing, pneumothorax, pulmonary embolism Narrative Course This patient presents with acute recurrence of dyspnea. He was admitted here on 05/30 for a PE. He reports that he was doing well post discharge until last night when he developed dyspnea began. He states that his symptoms today are not nearly as bad as his symptoms on 05/30. CBC & BMP Diagram 06/08/17 11:55 Calcium Level 8.[address] Angiography 06/08/17 1150 Signed Impressions: Service Date/Time: Thursday, June 08, 2017 14:10 - CONCLUSION: 1. Decrease in size of pulmonary emboli bilaterally. 2. Increased bilateral pulmonary opacity with a combination of groundglass opacity and dependent consolidation. May represent pulmonary edema. Oumar Solano MD He has been treated with IV Lasix. Dyspnea persists. He will be admitted. Diagnosis Primary Impression: CHF (congestive heart failure) Qualified Codes: I50.9 - Heart failure, unspecified Admitting Information Admitting Physician Requests: Admit Condition: Stable Valeria Rosas MD Jun 08, 2017 12:22
[2017-06-08 12:30] LABS: BICARBONATE 25.3 MEQ/L (21.0-32.0); BLOOD UREA NITROGEN 15 MG/DL (7-18); CALCIUM 8.8 MG/DL (8.5-10.1); CHLORIDE 100 MEQ/L (98-107); CREATININE 1.07 MG/DL (0.60-1.30); GLOMERULAR FILTRATION RATE 68 ML/MIN (>89); GLUCOSE,RANDOM 316 MG/DL (74-106); SODIUM (NA) 134 MEQ/L (136-145)
[2017-06-08 12:33] LABS: TROPONIN I LESS THAN 0.02 NG/ML (0.02-0.05)
[2017-06-08] MEDS ORDERED: IOHEXOL 350 MG/ML 10 ML VIAL (for RAD DIAG) IVCONTRAST ONE (14:11)
--- NOTE | 2017-06-08 14:52 | RADRPT ---
EXAM DATE/TIME: 06/08/2017 14:10 [facility] COMPARISON: CT PULMONARY ANGIOGRAM, June 01, 2017, 7:42. INDICATIONS : Dyspnea today. IV CONTRAST: 70 cc Omnipaque 350 (iohexol) IV RADIATION DOSE: 10.89 CTDIvol (mGy) ; Patient body habitus MEDICAL HISTORY : Carcinoma, prostate. Lymphoma. diabetes SURGICAL HISTORY : None. ENCOUNTER: Initial ACUITY: 1 day PAIN SCALE: 0/10 LOCATION: Bilateral chest TECHNIQUE: Volumetric scanning of the chest was performed using a pulmonary embolism protocol MIP images were re constructed. Using automated exposure control and adjustment of the mA and/or kV according to patien t size, radiation dose was kept as low as reasonably achievable to obtain optimal diagnostic quality images. DICOM format image data is available electronically for review and comparison. Follow-up recommendations for detected pulmonary nodules are based at a minimum on nodule size and pa tient risk factors according to Fleischner Society Guidelines. FINDINGS: PULMONARY ARTERIES: Bilateral pulmonary artery filling defects in dictating pulmonary emboli again identified. Filling de fects are seen at the proximal segmental branches I laterally and are much smaller than on the compar mara study of 06/01/2017. LUNGS: Increased bilateral diffuse groundglass opacity in the lungs along with dependent bilateral lower lob e consolidation or atelectasis. PLEURAE: There is no pleural thickening or pleural effusion. MEDIASTINUM: There is good visualization of the great vessels of the middle mediastinum. No evidence of mediastin al or hilar adenopathy/mass. MUSCULOSKELETAL: Within normal limits for patient age. MISCELLANEOUS: The visualized upper abdominal organs demonstrate no acute abnormality. CONCLUSION: 1. Decrease in size of pulmonary emboli bilaterally. 2. Increased bilateral pulmonary opacity with a combination of groundglass opacity and dependent cons olidation. May represent pulmonary edema. Oumar Solano MD on June 08, 2017 at 14:47 Board Certified Radiologist. This report was verified electronically.
[2017-06-08] MEDS ORDERED: FUROSEMIDE 40 MG/4 ML VIAL IV PUSH ONE (15:30)
[2017-06-08 16:13] VITALS: BP 128/75; PULSE 75; RESP 18; O2SAT 94
[2017-06-08] MEDS ORDERED: MAGNESIUM HYDROXIDE SUSP 30 ML CUP PO PRN (17:45)
[2017-06-08] MEDS ORDERED: ONDANSETRON HCL 4 MG/2 ML VIAL IVP PRN (17:45)
[2017-06-08] MEDS ORDERED: BISACODYL 10 MG SUPP RECTAL PRN (17:45)
[2017-06-08] MEDS ORDERED: ACETAMINOPHEN 325 MG TAB PO PRN (17:45)
[2017-06-08] MEDS ORDERED: SENNOSIDES 8.6 MG TAB PO PRN (17:45)
[2017-06-08] MEDS ORDERED: LACTULOSE SYRUP 20 GM/30 ML CUP PO PRN (17:45)
[2017-06-08] MEDS ORDERED: NALOXONE HCL 0.4 MG/ML AMP IV PUSH PRN (17:45)
[2017-06-08] MEDS ORDERED: SODIUM CHLORIDE 0.9% FLUSH 10 ML FLUSH IV FLUSH PRN (17:45)
[2017-06-08] MEDS ORDERED: DEXTROSE 50% IN WATER 50 ML VIAL(D50) IV PUSH PRN (18:00)
[2017-06-08] MEDS ORDERED: GLUCAGON 1 MG/ML VIAL OTHER PRN (18:00)
[2017-06-08] MEDS ORDERED: RESP: ALBUTEROL 2.5 MG/IPRATROPIUM 0.5 MG NEB (PRN) NEB (18:00)
[2017-06-08] MEDS: FUROSEMIDE 40 MG/4 ML VIAL IV PUSH SCH (18:54)
[2017-06-08] MEDS: GABAPENTIN 300 MG CAP PO SCH ×2 (18:54→21:03)
[2017-06-08 19:00] VITALS: BP 119/66; PULSE 82; RESP 20; TEMP 98.7; O2SAT 92
[2017-06-08 19:49] VITALS: PULSE 75
[2017-06-08 20:00] VITALS: BP 159/73; PULSE 103; RESP 18; TEMP 98.2; O2SAT 91
--- NOTE | 2017-06-08 20:11 | HHI.HP ---
HPI Service [facility] Primary Care Physician Non-Staff Admission Diagnosis hypoxia, CHF Diagnoses: (1) CHF (congestive heart failure) (2) Bilateral pulmonary embolism Chief Complaint: Shortness of breath and malaise Travel History International Travel<30 Days: No Contact w/Intl Traveler <30 Da: No Traveled to Known Affected Are: No History of Present Illness Mr. Chan is a pleasant 72 y/o male with a recent saddle PE diagnosed 05/30/17 who is on Xarelto and presented to the ED on 06/08/16 with worsening shortness of breath and fatigue. He was found to have decreased size of bilateral PEs and bilateral pulmonary opacities, ground-glass opacity, and dependent consolidation possibly representing pulmonary edema. Dr. Pathak has seen the patient and thinks he may have hypersensitivity pneumonia and has started a course of IV steroids. The patient is seen in his hospital room with his at his bedside. He reports that he has had fatigue persisting since discharge from hospital on 06/03. He denies any chest pain or peripheral edema. He has also been having tension headaches since discharge - he's had them in the past and the headaches he's been having since discharge are the same. He denies N/V/Diarrhea. He has also been having some mild right upper quadrant pain that is worse with movement - not reproducible with palpation. I have ordered a CMP in a.m. to review LFTs. Review of Systems Except as stated in HPI: all other systems reviewed are Neg Past Family Social History Past Medical History Type 2 DM Bilateral PE 05/30/17 Prostate Cancer s/p prostatectomy/radiation/chemotherapy Non-Hodgkin's Lymphoma Hyperlipidemia Nephrolithiasis . Past Surgical History Prostatectomy Port Placed Back Surgery . Reported Medications Reported Meds & Active Scripts Active Metoprolol Tartrate 25 Mg Tab 25 Mg PO Q12HR 60 Days Xarelto (Rivaroxaban) 15 Mg Tab 15 Mg PO BID Take one 15 mg tab po BID for 21 days, then take 20 mg po qday for 6 months. Reported [Juice Plus] 6 Tab PO DAILY Meloxicam 15 Mg Tab 15 Mg PO DAILY Livalo (Pitavastatin) 2 Mg Tab 2 Mg PO EVERY OTHER DAY Gabapentin 600 Mg Tab 300 Mg PO QID Vitamin B Complex (B-Complex Vitamins) 1 Tab 1 Tab PO BID Metformin (Metformin HCl) 500 Mg Tab 250 Mg PO BIDPC Vitamin D3 (Cholecalciferol) 2,000 Unit Cap 2,000 Units PO BID Lisinopril 10 Mg Tab 10 Mg PO DAILY . Allergies: Coded Allergies: Penicillins (Verified Allergy, Severe, 06/08/17) Family History Son with AIDS . Social History Alcohol Use: No Tobacco Use: No Substance Use: No . Physical Exam Vital Signs Vital Signs Date Time Temp Pulse Resp B/P (MAP) Pulse Ox O2 Delivery O2 Flow Rate FiO2 06/08/17 19:00 98.7 82 20 119/66 (83) 92 06/08/17 18:18 (92) Nasal Cannula 3.00 06/08/17 16:13 75 18 128/75 (92) 94 Nasal Cannula 3.00 06/08/17 12:13 94 Nasal Cannula 4.00 06/08/17 11:52 (89) Nasal Cannula 2.00 06/08/17 11:52 93 Nasal Cannula 2.00 06/08/17 11:50 83 94 Nasal Cannula 2.00 06/08/17 11:29 98.6 86 19 127/71 (89) 92 Physical Exam GENERAL: This is an overweight older male patient, in no apparent distress. SKIN: No rashes. Cool and dry. HEAD: Atraumatic. Normocephalic. EYES: No scleral icterus. No injection or drainage. ENT: Nose without bleeding, purulent drainage. NECK: Trachea midline. No JVD or lymphadenopathy. CARDIOVASCULAR: Regular rate and rhythm without murmurs, gallops, or rubs. RESPIRATORY: Clear to auscultation. Breath sounds diminished at bases but equal bilaterally. No wheezes, rales, or rhonchi. GASTROINTESTINAL: Abdomen soft, non-tender, nondistended. No guarding. Right upper quadrant pain not reproducible. MUSCULOSKELETAL: Extremities without clubbing, cyanosis, or edema. No calf tenderness. NEUROLOGICAL: Awake and alert. Motor and sensory grossly within normal limits. Normal speech. . Laboratory Laboratory Tests Test 06/08/17 11:55 White Blood Count 7.7 Red Blood Count 4.59 Hemoglobin 13.8 Hematocrit 41.5 Mean Corpuscular Volume 90.6 Mean Corpuscular Hemoglobin 30.0 Mean Corpuscular Hemoglobin Concent 33.1 Red Cell Distribution Width 15.0 Platelet Count 212 Mean Platelet Volume 7.5 Neutrophils (%) (Auto) 74.5 Lymphocytes (%) (Auto) 10.3 Monocytes (%) (Auto) 8.0 Eosinophils (%) (Auto) 6.3 Basophils (%) (Auto) 0.9 Neutrophils # (Auto) 5.7 Lymphocytes # (Auto) 0.8 Monocytes # (Auto) 0.6 Eosinophils # (Auto) 0.5 Basophils # (Auto) 0.1 CBC Comment AUTO DIFF Differential Comment AUTO DIFF CONFIRMED Platelet Estimate NORMAL Platelet Morphology Comment NORMAL Red Cell Morphology Comment NORMAL Prothrombin Time 13.0 Prothromb Time International Ratio 1.3 Activated Partial Thromboplast Time 30.4 Blood Urea Nitrogen 15 Creatinine 1.07 Random Glucose 316 Calcium Level 8.8 Sodium Level 134 Potassium Level 4.3 Chloride Level 100 Carbon Dioxide Level 25.3 Anion Gap 9 Estimat Glomerular Filtration Rate 68 Troponin I LESS THAN 0.02 B-Type Natriuretic Peptide 9 Result Diagram: 06/08/17 1155 06/08/17 [address] Angiography 06/08/17 1150 Signed Impressions: Service Date/Time: Thursday, June 08, 2017 14:10 - CONCLUSION: 1. Decrease in size of pulmonary emboli bilaterally. 2. Increased bilateral pulmonary opacity with a combination of groundglass opacity and dependent consolidation. May represent pulmonary edema. Oumar Solano MD . Caprini VTE Risk Assessment Caprini VTE Risk Assessment: Mod/High Risk (score >= 2) Caprini Risk Assessment Model Point Value = 1 Point Value = 2 Point Value = 3 Point Value = 5 Age 41-60 Minor surgery BMI > 25 kg/m2 Swollen legs Varicose veins or History of unexplained or recurrent spontaneous Oral contraceptives or hormone replacement Sepsis (< 1 month) Serious lung disease, including pneumonia (< 1 month) Abnormal pulmonary function Acute myocardial infarction Congestive heart failure (< 1 month) History of inflammatory bowel disease Medical patient at bed rest Age 61-74 Arthroscopic surgery Major open surgery (> 45 min) Laparoscopic surgery (> 45 min) Malignancy Confined to bed (> 72 hours) Immobilizing plaster cast Central venous access Age >= 75 History of VTE Family history of VTE Factor V Leiden Prothrombin [id number] Lupus anticoagulant Anticardiolipin antibodies Elevated serum homocysteine Heparin-induced thrombocytopenia Other congenital or acquired thrombophilia Stroke (< 1 month) Elective arthroplasty Hip, pelvis, or leg fracture Acute spinal cord injury (< 1 month) Prophylaxis Regimen Total Risk Factor Score Risk Level Prophylaxis Regimen 0-1 Low Early ambulation 2 Moderate Order ONE of the following: *Sequential Compression Device (SCD) *Heparin 5000 units SQ BID 3-4 Higher Order ONE of the following medications: *Heparin 5000 units SQ TID *Enoxaparin/Lovenox 40 mg SQ daily (WT < 150 kg, CrCl > 30 mL/min) *Enoxaparin/Lovenox 30 mg SQ daily (WT < 150 kg, CrCl > 10-29 mL/min) *Enoxaparin/Lovenox 30 mg SQ BID (WT < 150 kg, CrCl > 30 mL/min) AND/OR *Sequential Compression Device (SCD) 5 or more Highest Order ONE of the following medications: *Heparin 5000 units SQ TID (Preferred with Epidurals) *Enoxaparin/Lovenox 40 mg SQ daily (WT < 150 kg, CrCl > 30 mL/min) *Enoxaparin/Lovenox 30 mg SQ daily (WT < 150 kg, CrCl > 10-29 mL/min) *Enoxaparin/Lovenox 30 mg SQ BID (WT < 150 kg, CrCl > 30 mL/min) AND *Sequential Compression Device (SCD) Assessment and Plan Problem List: (1) CHF (congestive heart failure) ICD Code: I50.9 - Heart failure, unspecified Status: Acute (2) Bilateral pulmonary embolism ICD Code: I26.99 - Other pulmonary embolism without acute cor pulmonale Assessment and Plan Mr. Chan is a pleasant 72 y/o male with a recent saddle PE diagnosed 05/30/17 who is on Xarelto and presented to the ED on 06/08/16 with worsening shortness of breath and fatigue. He was found to have decreased size of bilateral PEs and bilateral pulmonary opacities, ground-glass opacity, and dependent consolidation possibly representing pulmonary edema. Dr. Pathak has seen the patient and thinks he may have hypersensitivity pneumonia and has started a course of IV steroids. Possible CHF on imaging vs hypersensitivity pneumonia (per still tender evaluation) - IV steroids per Dr. Pathak - IV Lasix 40 mg BID - BNP not elevated - 9 on admission - Duonebulizers q4h PRN sob/wheezing - Pulmonary consult appreciated - Cardiology consulted - 2D echocardiogram to evaluate cardiac structure and function - Troponin I < 0.02 x 2 so far Bilateral PE - reduced in size on imaging - continue home Xarelto Type 2 DM - accuchecks ac and hs with low dose Novolog sliding scale coverage - monitor blood glucose trends and adjust treatment accordingly Headaches - will provide analgesia and monitor - patient reports history of tension headaches as he is currently experiencing - no neuro deficits noted - consider Head CT if symptoms persist RUQ pain, mild, not reproducible with palpation - CMP in a.m. and review LFTs when resulted DVT prophylaxis - on Xarelto Discussed Condition With Dr. Christina, patient, patient's , RN Physician Certification 2 Midnight Certification Type: Admission for Inpatient Services Order for Inpatient Services The services are ordered in accordance with Medicare regulations or non- Medicare payer requirements, as applicable. In the case of services not specified as inpatient-only, they are appropriately provided as inpatient services in accordance with the 2-midnight benchmark. Estimated LOS (days): 4 days is the estimated time the patient will need to remain in the hospital, assuming treatment plan goals are met and no additional complications. Post-Hospital Plan: Home Problem Qualifiers (1) CHF (congestive heart failure): Qualified Codes: I50.9 - Heart failure, unspecified Val Rodriguez Jun 08, 2017 20:11
[2017-06-08] MEDS ORDERED: ACETAMINOPHEN/HYDROcodone 325 MG/5 MG TAB PO PRN (20:15)
[2017-06-08] MEDS ORDERED: ACETAMINOPHEN/HYDROcodone 325 MG/5 MG TAB PO ONE (20:15)
[2017-06-08 20:36] VITALS: O2SAT 94
[2017-06-08] MEDS: SODIUM CHLORIDE 0.9% FLUSH 10 ML FLUSH IV FLUSH SCH (21:00)
[2017-06-08] MEDS ORDERED: NON-FORMULARY DRUG (B-Complex Vitamins (Vitamin B Complex) 1 TAB) PO SCH (21:00)
[2017-06-08] MEDS: INSULIN ASPART SUPPLEMENTAL SCALE SQ SCH (21:00)
--- NOTE | 2017-06-08 21:02 | MB ---
cc: SUSAN MARSH DATE OF CONSULTATION 06/08/[address] Catalina Bush REASON FOR CONSULTATION Shortness of breath. HISTORY OF THE PRESENT ILLNESS Mr. Chan is a pleasant 72-year-old male who is from [place]. He was admitted in this hospital on May 30. He had submassive saddle pulmonary embolism. He had a TPA therapy and after that he was still having shortness of breath and he underwent catheter directed thrombosis. He did well and he was discharged home on oxygen. He did well for 4-5 days and yesterday he was getting more short of breath which was not his baseline. He does not have cough or sputum production. He did not have any chest pain. No palpitation. He does have chronic back pain. With these symptoms he came back to the hospital. He had a CTA of the chest done which shows that he has decreased the size of the pulmonary embolism bilaterally and he has bilateral pulmonary opacities, ground-glass opacity and possible pulmonary edema. LABORATORY DATA His CBC showed a white blood cell count of 7.7, hemoglobin 13.8, hematocrit 41.5, MCV 90, platelet count 212. Sodium 134, potassium 4.6, chloride 100, CO2 25, BUN 15, creatinine 1.07. PAST MEDICAL HISTORY 1. Recent bilateral pulmonary embolism status post TPA and catheter directed thrombosis. 2. History of cancer of the prostate status post surgery. 3. History of non-Hodgkin lymphoma status post chemotherapy and radiation treatment. 4. History of back surgery. 5. History of hypertension. MEDICATIONS He is currently takin. Pravastatin 40 milligrams a day. 2. Lisinopril 10 mg a day. 3. Meloxicam 15 mg a day. 4. Metoprolol 25 mg q.12h. 5. Xarelto 15 mg twice a day. 6. Neurontin 300 mg four times a day. 7. Lasix 40 mg twice a day. 8. Albuterol/Atrovent nebulizer treatment as needed. ALLERGIES HE IS ALLERGIC TO PENICILLIN. SOCIAL HISTORY He is . 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 No history of smoking or alcohol abuse. FAMILY HISTORY He had two children, one son with AIDS. REVIEW OF SYSTEMS Normally he is up, around and active. Now he is having shortness of breath. He had flu-like symptoms about a month ago and required antibiotic and steroids. PHYSICAL EXAMINATION GENERAL: Well-developed, well-nourished male, mild short of breath. VITAL SIGNS: Blood pressure 119/66, heart rate 82, respirations 22, temperature 98.7. EENT: Pupils are equal and reactive to light. Oral mucosa, nasal mucosa normal. NECK: Supple. JVP not raised. CHEST: Air entry equal bilaterally. No rhonchi. CARDIOVASCULAR: S1-S2 normal. ABDOMEN: Benign. EXTREMITIES: No edema. IMPRESSION 1. Worsening shortness of breath with ground glass infiltrate, possible pulmonary edema and possible hypersensitivity pneumonia. 2. Recent submassive pulmonary embolism status post TPA and catheter directed thrombosis. 3. Hypertension. 4. History of CA of the prostate. 5. History of non-Hodgkin lymphoma. 6. Back pain. PLAN I discussed with the patient and his he is on Xarelto which we will continue. Supplement his oxygen. Diurese him and see what his response. Check his echocardiogram and also give him a course of steroids and see the response to that. Further treatment will depend on the course in the hospital. Thank you Dr. Bush for this consultation. MD EULALIA Maciel/MIRIAM /7:27 PM /8:35 PM
[2017-06-08] MEDS: METOPROLOL TARTRATE 25 MG TAB PO SCH (21:05)
[2017-06-08] MEDS: CHOLECALCIFEROL (VIT D3) 1000 UNIT TAB PO SCH (21:05)
[2017-06-08] MEDS: DOCUSATE SODIUM 50 MG/SENNA 8.6 MG TAB PO SCH (21:05)
[2017-06-08] MEDS: methylPREDNISolone SOD SUCC 40 MG/1 ML VIAL IV PUSH SCH (21:07)
[2017-06-08] MEDS: RIVAROXABAN 15 MG TAB PO SCH (21:07)
[2017-06-09] VITALS (10 sets, daily range): BP systolic 95–122; BP diastolic 55–69; PULSE 18–77; RESP 17–18; TEMP 97.3–98.9; O2SAT 91–94
[2017-06-09] MEDS: methylPREDNISolone SOD SUCC 40 MG/1 ML VIAL IV PUSH SCH ×5 (00:58→23:20)
[2017-06-09 08:45] LABS: AUTOMATED NEUTROPHIL # 6.7 TH/MM3 (1.8-7.7); BASOPHIL % 0.3 % (0.0-2.0); EOSINOPHIL % 0.3 % (0.0-4.0); HEMATOCRIT 40.4 % (39.0-51.0); LYMPH % 7.1 % (9.0-44.0); LYMPHOCYTE # 0.5 TH/MM3 (1.0-4.8); MEAN CELL VOLUME 88.3 FL (80.0-100.0); MEAN CORPUSCULAR HEMOGLOBIN 30.5 PG (27.0-34.0); MEAN CORPUSCULAR HGB CONC 34.5 % (32.0-36.0); MEAN PLATELET VOLUME 7.4 FL (7.0-11.0); MONO % 2.6 % (0.0-8.0); MONOCYTE # 0.2 TH/MM3 (0-0.9); NEUT % 89.7 % (16.0-70.0); PLATELET COUNT 214 TH/MM3 (150-450); RED BLOOD COUNT 4.58 MIL/MM3 (4.50-5.90); RED CELL DISTRIBUTION WIDTH 14.7 % (11.6-17.2); WHITE BLOOD COUNT 7.5 TH/MM3 (4.0-11.0)
[2017-06-09] MEDS: METOPROLOL TARTRATE 25 MG TAB PO SCH ×2 (08:59→22:05)
[2017-06-09] MEDS: RIVAROXABAN 15 MG TAB PO SCH ×2 (08:59→22:05)
[2017-06-09] MEDS: DOCUSATE SODIUM 50 MG/SENNA 8.6 MG TAB PO SCH ×2 (08:59→22:06)
[2017-06-09] MEDS: VITAMIN B COMPLEX/VIT C TAB PO SCH (08:59)
[2017-06-09] MEDS: GABAPENTIN 300 MG CAP PO SCH ×4 (08:59→22:05)
[2017-06-09] MEDS: CHOLECALCIFEROL (VIT D3) 1000 UNIT TAB PO SCH ×2 (08:59→22:05)
[2017-06-09] MEDS: SODIUM CHLORIDE 0.9% FLUSH 10 ML FLUSH IV FLUSH SCH ×2 (09:00→21:00)
[2017-06-09] MEDS: FUROSEMIDE 40 MG/4 ML VIAL IV PUSH SCH ×2 (09:00→16:39)
[2017-06-09] MEDS: LISINOPRIL 10 MG TAB PO SCH (09:00)
[2017-06-09] MEDS ORDERED: MELOXICAM 15 MG TAB PO SCH (09:00)
[2017-06-09 09:22] LABS: ALBUMIN 3.4 GM/DL (3.4-5.0); ALKALINE PHOSPHATASE 77 U/L (45-117); ALT (GPT) 42 U/L (12-78); AST (GOT) 14 U/L (15-37); BICARBONATE 28.8 MEQ/L (21.0-32.0); BLOOD UREA NITROGEN 21 MG/DL (7-18); CALCIUM 9.4 MG/DL (8.5-10.1); CHLORIDE 97 MEQ/L (98-107); CREATININE 1.07 MG/DL (0.60-1.30); GLOMERULAR FILTRATION RATE 68 ML/MIN (>89); GLUCOSE,RANDOM 187 MG/DL (74-106); SODIUM (NA) 134 MEQ/L (136-145); TOTAL BILIRUBIN ADULT 0.7 MG/DL (0.2-1.0); TOTAL PROTEIN 6.9 GM/DL (6.4-8.2)
[2017-06-09] MEDS: INSULIN ASPART SUPPLEMENTAL SCALE SQ SCH ×4 (10:06→22:06)
[2017-06-09] MEDS: POTASSIUM CHLORIDE 20 MEQ CONTROLLED RELEASE TAB PO SCH ×2 (12:30→16:39)
--- NOTE | 2017-06-09 15:44 | MB ---
cc: REECE FRENCH M.D. DATE OF CONSULTATION 06/09/2017 REASON FOR CONSULTATION Evaluation of possible CHF. HISTORY OF PRESENT ILLNESS Gabriel Chan is a 72-year-old man with recent diagnosis of a severe pulmonary embolism on May 30. He received TPA. He has been on Xarelto 15 mg b.i.d. He has also been on meloxicam. He has not been practicing any salt restriction. He came in because of a 4-5 day history of increasing shortness of breath with some orthopnea. He has been started on IV Lasix prior to my seeing him. He does not have any typical anginal symptoms. He, however, does have shortness of breath. PAST MEDICAL HISTORY 1. Recent PE. 2. Cancer of the prostate, status post surgery. 3. History of non-Hodgkin's lymphoma, status post chemotherapy and radiation. 4. Prior back surgery. 5. Hypertension. MEDICATIONS Medications are charted. He is currently on Xarelto. He is also receiving meloxicam 15 mg a day, lisinopril 10 mg a day. ALLERGIES PENICILLIN. SOCIAL HISTORY Non-smoker, non-drinker. FAMILY HISTORY Unremarkable. PHYSICAL EXAMINATION GENERAL: A well-developed, well-nourished man in no acute distress. VITAL SIGNS: Charted. HEENT: Unremarkable. NECK: No obvious JVD or bruits. CHEST: Notable for bibasilar rales. CARDIAC: S1, S2, regular rate and rhythm, may be a 1/6 systolic ejection murmur. ABDOMEN: Soft, nontender. EXTREMITIES: No peripheral edema. Intact pulses. TELEMETRY Currently from his telemetry it looks like he has sinus rhythm with a right bundle branch block. IMAGING CT scan results are noted. LABORATORY Laboratory results are noted. IMPRESSION I suspect there could be a component of mild CHF. Often this can be due to septal interactions where the right ventricle is enlarged and pressing on the left ventricle causing some transient LV dysfunction. PLAN/RECOMMENDATIONS I agree with IV Lasix. I am getting rid of the meloxicam, checking BMP and magnesium in the morning. Await his 2-D echo Doppler study. Further therapy to be determined. MD CATHERINE Mckenzie/EH /11:52 AM /3:32 PM
--- NOTE | 2017-06-09 16:08 | HHI.PR ---
Subjective Remarks 72 YOWM with recent PE,TPA and cathetor directed Thrombolysis has worsening sob CTA Ground glass infilt Little better today tired Objective Vital Signs Vital Signs Date Time Temp Pulse Resp B/P (MAP) Pulse Ox O2 Delivery O2 Flow Rate FiO2 06/09/17 12:21 97.3 70 17 95/61 (72) 91 06/09/17 12:10 77 06/09/17 09:48 94 Nasal Cannula 3.00 06/09/17 08:01 97.8 63 17 116/67 (83) 92 06/09/17 08:01 69 06/09/17 07:00 Nasal Cannula 3.00 06/09/17 04:00 Nasal Cannula 3.00 06/09/17 04:00 62 06/09/17 04:00 98.2 18 18 122/69 (86) 92 06/09/17 00:00 98.9 65 18 113/58 (76) 92 06/09/17 00:00 61 06/09/17 00:00 Nasal Cannula 3.00 06/08/17 20:36 94 Nasal Cannula 3.00 06/08/17 20:00 98.2 103 18 159/73 (101) 91 06/08/17 20:00 Nasal Cannula 3.00 06/08/17 19:49 75 06/08/17 19:00 98.7 82 20 119/66 (83) 92 06/08/17 18:18 (92) Nasal Cannula 3.00 06/08/17 16:13 75 18 128/75 (92) 94 Nasal Cannula 3.00 I/O 06/08/17 06/08/17 06/08/17 06/09/17 06/09/17 06/09/17 07:00 15:00 23:00 07:00 15:00 23:00 Output Total 1000 ml Balance -1000 ml Output Urine Total 1000 ml # Voids 3 Result Diagram: 06/09/1746 06/09/1746 Objective Remarks GENERAL: WBWN male, mild sob SKIN: Warm and dry. HEAD: Normocephalic. EYES: No scleral icterus. No injection or drainage. NECK: Supple, trachea midline. No JVD or lymphadenopathy. CARDIOVASCULAR: Regular rate and rhythm without murmurs, gallops, or rubs. RESPIRATORY: Breath sounds equal bilaterally. No accessory muscle use. GASTROINTESTINAL: Abdomen soft, non-tender, nondistended. MUSCULOSKELETAL: No cyanosis, or edema. BACK: Nontender without obvious deformity. No CVA tenderness. A/P Assessment and Plan Dysnoea Ground glass infilt CHF Recent PE HTN H/O ca prostate Ch back pain PLAN: Supplement 02 Xarelto 15 mg bid IV Solumedrol Diurease Check Echo. Karl Pathak MD Jun 09, 2017 16:08
--- NOTE | 2017-06-09 18:46 | HHI.PR ---
Subjective Remarks Patient seen today around 4 PM. Says he is feeling slightly better than yesterday. Denies any chest pain currently. Reports shortness of breath not much improved. Objective Vital Signs Date Time Temp Pulse Resp B/P (MAP) Pulse Ox O2 Delivery O2 Flow Rate FiO2 06/09/17 16:16 97.6 65 18 105/55 (72) 91 06/09/17 16:00 77 06/09/17 12:21 97.3 70 17 95/61 (72) 91 06/09/17 12:10 77 06/09/17 09:48 94 Nasal Cannula 3.00 06/09/17 08:01 97.8 63 17 116/67 (83) 92 06/09/17 08:01 69 06/09/17 07:00 Nasal Cannula 3.00 06/09/17 04:00 Nasal Cannula 3.00 06/09/17 04:00 62 06/09/17 04:00 98.2 18 18 122/69 (86) 92 06/09/17 00:00 98.9 65 18 113/58 (76) 92 06/09/17 00:00 61 06/09/17 00:00 Nasal Cannula 3.00 06/08/17 20:36 94 Nasal Cannula 3.00 06/08/17 20:00 98.2 103 18 159/73 (101) 91 06/08/17 20:00 Nasal Cannula 3.00 06/08/17 19:49 75 06/08/17 19:00 98.7 82 20 119/66 (83) 92 I/O 06/08/17 06/08/17 06/08/17 06/09/17 06/09/17 06/09/17 07:00 15:00 23:00 07:00 15:00 23:00 Intake Total 720 ml Output Total 1000 ml Balance -1000 ml 720 ml Intake Oral 720 ml Output Urine Total 1000 ml # Voids 3 4 # Bowel Movements 0 Result Diagram: 06/09/1774506/09/17745 Objective Remarks GENERAL: Patient sitting up in bed. Appears comfortable. SKIN: Warm and dry. HEAD: Normocephalic. EYES: No scleral icterus. No injection or drainage. NECK: Supple, trachea midline. No JVD. CARDIOVASCULAR: Regular rate and rhythm without murmurs, gallops, or rubs. RESPIRATORY: Breath sounds equal bilaterally. No accessory muscle use. Rales bilaterally at the bases. GASTROINTESTINAL: Abdomen soft, non-tender, nondistended. MUSCULOSKELETAL: No cyanosis, or edema. BACK: Nontender without obvious deformity. No CVA tenderness. A/P Assessment and Plan Mr. Chan is a pleasant 72 y/o male with a recent saddle PE diagnosed 05/30/17 who is on Xarelto and presented to the ED on 06/08/16 with worsening shortness of breath and fatigue. He was found to have decreased size of bilateral PEs and bilateral pulmonary opacities, ground-glass opacity, and dependent consolidation possibly representing pulmonary edema. Dr. Pathak has seen the patient and thinks he may have hypersensitivity pneumonia and has started a course of IV steroids. //Possible CHF on imaging vs hypersensitivity pneumonia (per mail technician evaluation) - IV steroids per Dr. Pathak - IV Lasix 40 mg BID - BNP not elevated - 9 on admission - Duonebulizers q4h PRN sob/wheezing - Pulmonary consult appreciated - Cardiology consulted - 2D echocardiogram to evaluate cardiac structure and function - Troponin I < 0.02 x 2 so far = Pending echocardiogram. Continue IV steroids. Appreciate pulmonary and cardiology assistance. //Bilateral PE - reduced in size on imaging - continue home Xarelto //Type 2 DM - accuchecks ac and hs with low dose Novolog sliding scale coverage - monitor blood glucose trends and adjust treatment accordingly = 06/09. Blood sugars elevated in the 300s today. We'll add Levemir. Continue to monitor //Headaches - will provide analgesia and monitor - patient reports history of tension headaches as he is currently experiencing - no neuro deficits noted - consider Head CT if symptoms persist = 06/09. Headaches improved //RUQ pain, mild, not reproducible with palpation - CMP in a.m. and review LFTs when resulted = 06/09. LFTs unremarkable. denies pain at this time. //DVT prophylaxis - on Xarelto Discharge Planning Pending further improvement. Cardiology and pulmonology following. PT following. Kieran Faulkner MD Jun 09, 2017 18:46
--- NOTE | 2017-06-09 19:18 | EKG ---
Date Performed: 06/08/2017 Time Performed: 11:38:25 PTAGE: 72 years EKG: Sinus rhythm WITH SINUS ARRHYTHMIA RIGHT BUNDLE BRANCH BLOCK Since previous tracing, no significant change noted ABNORMAL ECG PREVIOUS TRACING : 06/01/2017 07.09 DOCTOR: Alphonse Tran Interpretating Date/Time 06/09/2017 19:16:32
[2017-06-09] MEDS: INSULIN DETEMIR 100 UNITS/ML VIAL SQ SCH (22:06)
[2017-06-10] VITALS (14 sets, daily range): BP systolic 97–108; BP diastolic 54–67; PULSE 50–68; RESP 16–20; TEMP 97.3–97.8; O2SAT 92–98
[2017-06-10] MEDS: methylPREDNISolone SOD SUCC 40 MG/1 ML VIAL IV PUSH SCH ×3 (05:33→18:16)
[2017-06-10 08:30] LABS: BICARBONATE 27.5 MEQ/L (21.0-32.0); CALCIUM 9.6 MG/DL (8.5-10.1); CREATININE 1.33 MG/DL (0.60-1.30); MAGNESIUM 2.4 MG/DL (1.5-2.5)
[2017-06-10] MEDS ORDERED: PITAVASTATIN 2 MG PO SCH (09:00)
[2017-06-10] MEDS ORDERED: POTASSIUM CHLORIDE 20 MEQ CONTROLLED RELEASE TAB PO SCH (09:00)
[2017-06-10] MEDS ORDERED: PRAVASTATIN SOD 40 MG TAB PO SCH (09:00)
[2017-06-10] MEDS: GABAPENTIN 300 MG CAP PO SCH ×4 (09:39→20:25)
[2017-06-10] MEDS: DOCUSATE SODIUM 50 MG/SENNA 8.6 MG TAB PO SCH ×2 (09:39→20:25)
[2017-06-10] MEDS: LISINOPRIL 10 MG TAB PO SCH (09:39)
[2017-06-10] MEDS: RIVAROXABAN 15 MG TAB PO SCH ×2 (09:40→20:24)
[2017-06-10] MEDS: METOPROLOL TARTRATE 25 MG TAB PO SCH ×2 (09:40→20:24)
[2017-06-10] MEDS: VITAMIN B COMPLEX/VIT C TAB PO SCH (09:40)
[2017-06-10] MEDS: CHOLECALCIFEROL (VIT D3) 1000 UNIT TAB PO SCH ×2 (09:40→20:24)
[2017-06-10] MEDS: SODIUM CHLORIDE 0.9% FLUSH 10 ML FLUSH IV FLUSH SCH ×2 (09:41→20:33)
[2017-06-10] MEDS: FUROSEMIDE 40 MG/4 ML VIAL IV PUSH SCH (09:41)
[2017-06-10] MEDS: INSULIN DETEMIR 100 UNITS/ML VIAL SQ SCH ×2 (09:48→20:25)
[2017-06-10] MEDS: INSULIN ASPART SUPPLEMENTAL SCALE SQ SCH ×4 (09:48→20:26)
[2017-06-10] MEDS: LEVOFLOXACIN 750 MG TAB PO SCH (09:57)
--- NOTE | 2017-06-10 10:12 | PD.CARD.PN ---
Subjective Subjective Remarks SOB improving Objective Medications Current Medications Medications (Trade) Dose Ordered Sig/Kari Route Start Time Stop Time Status Last Admin (Vitamin D3) 2,000 units BID PO 06/08/17 21:00 06/10/17 09:40 (Neurontin) 300 mg QID PO 06/08/17 18:00 06/10/17 09:39 (Prinivil) 10 mg DAILY PO 06/09/17 09:00 06/10/17 09:39 (Lopressor) 25 mg Q12HR PO 06/08/17 21:00 06/10/17 09:40 (Xarelto) 15 mg BID PO 06/08/17 21:00 06/10/17 09:40 (NS Flush) 2 ml UNSCH PRN IV FLUSH 06/08/17 17:45 (NS Flush) 2 ml BID IV FLUSH 06/08/17 21:00 06/10/17 09:41 (Tylenol) 650 mg Q4H PRN PO 06/08/17 17:45 (Zofran Inj) 4 mg Q6H PRN IVP 06/08/17 17:45 (Narcan Inj) 0.4 mg UNSCH PRN IV PUSH 06/08/17 17:45 (Lisbet-Colace) 1 tab BID PO 06/08/17 21:00 06/10/17 09:39 (Milk Of Magnesia Liq) 30 ml Q12H PRN PO 06/08/17 17:45 (Senokot) 17.2 mg Q12H PRN PO 06/08/17 17:45 (Dulcolax Supp) 10 mg DAILY PRN RECTAL 06/08/17 17:45 (Lactulose Liq) 30 ml DAILY PRN PO 06/08/17 17:45 (Lasix Inj) 40 mg BID@,18 IV PUSH 06/08/17 18:00 06/10/17 09:41 (Duoneb Neb) 1 ampule Q4HR NEB PRN NEB 06/08/17 18:00 (D50w (Vial) Inj) 50 ml UNSCH PRN IV PUSH 06/08/17 18:00 (Glucagon Inj) 1 mg UNSCH PRN OTHER 06/08/17 18:00 (NovoLOG SUPPLEMENTAL SCALE) 1 ACHS SLIDING SCALE SQ 06/08/17 21:00 06/10/17 09:48 (Allbee C) 1 tab DAILY PO 06/09/17 09:00 06/10/17 09:40 (Pravachol) 40 mg EVERY OTHER DAY PO 06/10/17 09:00 06/10/17 09:39 (SoluMEDROL INJ) 40 mg Q6HR IV PUSH 06/08/17 19:30 06/10/17 05:33 ([place] 5-325 Mg) 1 tab Q4H PRN PO 06/08/17 20:15 (Levemir Inj) 8 units Q12HR SQ 06/09/17 21:00 06/10/17 09:48 (Levaquin) 750 mg DAILY PO 06/10/17 09:45 06/10/17 09:57 Vital Signs / I&O Vital Signs Date Time Temp Pulse Resp B/P (MAP) Pulse Ox O2 Delivery O2 Flow Rate FiO2 06/10/17 09:34 94 Nasal Cannula 3.00 06/10/17 08:00 97.5 61 20 108/67 (81) 93 06/10/17 04:00 97.6 50 18 102/55 (71) 92 06/10/17 03:54 57 06/10/17 00:05 62 06/10/17 00:00 97.5 59 16 103/58 (73) 92 06/09/17 22:00 Nasal Cannula 3.00 06/09/17 20:30 69 06/09/17 20:00 97.9 70 18 100/55 (70) 92 06/09/17 16:16 97.6 65 18 105/55 (72) 91 06/09/17 16:00 77 06/09/17 12:21 97.3 70 17 95/61 (72) 91 06/09/17 12:10 77 I/O 06/09/17 06/09/17 06/09/17 06/10/17 06/10/17 06/10/17 07:00 15:00 23:00 07:00 15:00 23:00 Intake Total 720 ml Output Total 1000 ml 1200 ml Balance -1000 ml 720 ml -1200 ml Intake Oral 720 ml Output Urine Total 1000 ml 1200 ml # Voids 3 4 # Bowel Movements 0 Physical Exam Alert, NAD Chest much clearer. Onlt trace rales left base CV S1S2 RRR. No S3 no edema Laboratory Laboratory Tests Test 1/30/18 07:10 Blood Urea Nitrogen 43 MG/DL Creatinine 1.33 MG/DL Random Glucose 197 MG/DL Calcium Level 9.6 MG/DL Magnesium Level 2.4 MG/DL Sodium Level 132 MEQ/L Potassium Level 4.6 MEQ/L Chloride Level 97 MEQ/L Carbon Dioxide Level 27.5 MEQ/L Anion Gap 8 MEQ/L Estimat Glomerular Filtration Rate 53 ML/MIN Imaging Last [address] Angiography 06/08/17 1150 Signed Impressions: Service Date/Time: Thursday, June 08, 2017 14:10 - CONCLUSION: 1. Decrease in size of pulmonary emboli bilaterally. 2. Increased bilateral pulmonary opacity with a combination of groundglass opacity and dependent consolidation. May represent pulmonary edema. Oumar Solano MD Assessment and Plan Problem List: (1) Bilateral pulmonary embolism ICD Codes: I26.99 - Other pulmonary embolism without acute cor pulmonale (2) CHF (congestive heart failure) ICD Codes: I50.9 - Heart failure, unspecified Status: Acute Plan: awaiat echo. Prior EF nl. Probable acute diastolic. (3) Prerenal azotemia ICD Codes: R79.89 - Other specified abnormal findings of blood chemistry Plan: change diuretic to PO Assessment and Plan I will be out of town. Cardiology available prn. Problem Qualifiers (1) CHF (congestive heart failure): Qualified Codes: I50.9 - Heart failure, unspecified [place]ano Jc MD Jun 10, 2017 10:12
[2017-06-10 11:31] LABS: BILIRUBIN, URINE NEG (NEG); BLOOD, URINE NEG (NEG); GLUCOSE,URINE 70 mg/dL (NEG); HYALINE CAST, URINE 8 /lpf (RARE); KETONE, URINE NEG (NEG); NITRITE,URINE NEG (NEG); SQUAMOUS EPITHELIAL CELL URINE <1 /hpf (0-5); URINE COLOR YELLOW (YELLW/STRAW); URINE LEUKOCYTE ESTERASE NEG (NEG)
[2017-06-10 11:39] LABS: CREATININE, RANDOM URINE 66.4 MG/DL
--- NOTE | 2017-06-10 13:21 | RADRPT ---
EXAM DATE/TIME: 06/10/2017 12:10 [facility] COMPARISON: CT PULMONARY ANGIOGRAM, June 08, 2017, 14:10. INDICATIONS : Increased Bun and Creatinine. MEDICAL HISTORY : Hypercholesterolemia. Glasses. Kidney stones. Diabetes. Non-hodgkinslymphoma. Prostate cancer. Chemot herapy. Hernia. SURGICAL HISTORY : Prostatectomy. Port placement. ENCOUNTER: Initial ACUITY: 1 day PAIN SCORE: 0/10 LOCATION: Bilateral flank MEASUREMENTS: RIGHT KIDNEY: 10.2 x 4.7 x 6.1 cm LEFT KIDNEY: 14.9 x 3.6 x 4.7 cm FINDINGS: RIGHT KIDNEY: Renal cortex is normal in thickness and borderline increased echotexture. No hydronephrosis, stone, or mass. LEFT KIDNEY: Low-lying left kidney. Renal cortex is normal in thickness and borderline increased echotexture. No hydronephrosis, stone, or mass. Simple cyst measures 2.1 x 2.1 x 1.6 cm seen within left mid kidney. BLADDER: Within normal limits given the degree of distension. Liver is slightly echogenic. CONCLUSION: 1. Borderline increase in renal echogenicity which can be seen with medical renal disease. 2. Simple cyst left kidney. 3. Ptotic left kidney. Noah Miner MD on June 10, 2017 at 13:16 Board Certified Radiologist. This report was verified electronically.
--- NOTE | 2017-06-10 15:33 | ECHRPT ---
Indication: PE CONCLUSIONS Normal left ventricular size. The left ventricular systolic function is normal with an estimated ejection fraction in the range of 55-60%. The left atrial size is upper limits of normal. [id number] mitral valve regurgitation. No aortic valve regurgitation. No aortic valve stenosis. There is mild tricuspid valve regurgitation. The estimated pulmonary arterial pressure is 37.2 mmHg. There is a small pericardial effusion present. BP: / HR: Rhythm: MEASUREMENTS (Male / Female) Normal Values Technical Quality:Technically difficult study 2D ECHO LV Diastolic Diameter PLAX 4.6 cm 4.2 - 5.9 / 3.9 - 5.3 cm LV Systolic Diameter PLAX 3.5 cm IVS Diastolic Thickness 1.5 cm 0.6 - 1.0 / 0.6 - 0.9 cm LVPW Diastolic Thickness 1.0 cm 0.6 - 1.0 / 0.6 - 0.9 cm LV Relative Wall Thickness 0.6 RV Internal Dim ED PLAX 2.5 cm M-MODE Aortic Root Diameter MM 3.1 cm LA Systolic Diameter MM 4.1 cm LA Ao Ratio MM 1.3 AV Cusp Separation MM 2.1 cm DOPPLER Mitral E Point Velocity 40.5 cm/s Mitral A Point Velocity 65.2 cm/s Mitral E to A Ratio 0.6 LV E' Lateral Velocity 6.4 cm/s Mitral E to LV E' Lateral Ratio 6.3 LV E' Septal Velocity 6.5 cm/s Mitral E to LV E' Septal Ratio 6.2 TR Peak Velocity 261.0 cm/s TR Peak Gradient 27.2 mmHg Right Atrial Pressure 10.0 mmHg Pulmonary Artery Systolic Pressu 37.2 mmHg Right Ventricular Systolic Press 37.2 mmHg FINDINGS LEFT VENTRICLE Normal left ventricular size. The left ventricular systolic function is normal with an estimated ejection fraction in the range of 55-60%. RIGHT VENTRICLE Normal right ventricular size and systolic function. LEFT ATRIUM The left atrial size is upper limits of normal. RIGHT ATRIUM The right atrial size is normal. ATRIAL SEPTUM Normal atrial septal thickness without atrial level shunting by limited color doppler interrogation. AORTA The aortic root and proximal ascending aorta are normal in size on limited imaging. MITRAL VALVE Structurally normal mitral valve. [id number] mitral valve regurgitation. AORTIC VALVE Trileaflet aortic valve. No aortic valve regurgitation. No aortic valve stenosis. TRICUSPID VALVE Structurally normal tricuspid valve. There is mild tricuspid valve regurgitation. The estimated pulmonary arterial pressure is 37.2 mmHg. PULMONARY VALVE No pulmonary valve regurgitation or stenosis. VESSELS The inferior vena cava is normal in size. PERICARDIUM There is a small pericardial effusion present. 1.7cm John Valverde MD (Electronically Signed) Final Date:10 June 2017 15:32
--- NOTE | 2017-06-10 19:13 | PD.ID.CON ---
History of Present Illness Service ID Consult Requested By Reason for Consult Evaluation and Mment of Ground glass densities/pneumonia. Primary Care Physician Non-Staff Diagnoses: History of Present Illness Mr. Chan is a pleasant 72 y/o male with a recent saddle PE diagnosed 05/30/17 who is on Xarelto and presented to the ED on 06/08/16 with worsening shortness of breath and fatigue. He was found to have decreased size of bilateral PEs and bilateral pulmonary opacities, ground-glass opacity, and dependent consolidation possibly representing pulmonary edema. Dr. Pathak has seen the patient and thinks he may have hypersensitivity pneumonia and has started a course of IV steroids. His PMHx is significant for Non Hodgkins lymphoma, Prostate cancer both cancers in remission. S/p Chemo till 2012. He also reports a history of fungal pneumonia diagnosed after he cleaned the garage and backyard and was admitted with acute onset pneumonia. Patient reports being treated as fungal pneumonia for a period of few weeks. No further recurrences of any infections in particular fungal infections. He also has h/o sleep apnea and is on BiPAP at home. Patient was admitted to the ICU in 06/08/2017 and on discharge was on Xarelto oral and compliant with medications. Hospital course: The patient is seen in his hospital room with his at his bedside. He reports that he has had fatigue persisting since discharge from hospital on 06/03/16. He denies any chest pain or peripheral edema. He has also been having tension headaches since discharge - he's had them in the past and the headaches he's been having since discharge are the same. started patient on IV steroids and patient reports improvement in breathing since admission. He denies N/V/Diarrhea. Denies abdominal pain. He denies any exposure to persons with known TB but has been to [place]. He denies any hemoptysis or hematochezia. Review of Systems Constitutional: COMPLAINS OF: Fatigue, DENIES: Diaphoretic episodes, Fever, Weight gain, Weight loss, Chills, Dizziness, Change in appetite, Night Sweats Endocrine: DENIES: Heat/cold intolerance, Polydipsia, Polyuria, Polyphagia Eyes: DENIES: Blurred vision, Diplopia, Eye inflammation, Eye pain, Vision loss , Photosensitivity, Double Vision Ears, nose, mouth, throat: DENIES: Tinnitus, Hearing loss, Vertigo, Nasal discharge, Oral lesions, Throat pain, Hoarseness, Ear Pain, Running Nose, Epistaxis, Sinus Pain, Toothache, Odynophagia Respiratory: COMPLAINS OF: Snoring, Shortness of breath, DENIES: Apneas, Cough , Wheezing, Hemoptysis, Sputum production Cardiovascular: DENIES: Chest pain, Palpitations, Syncope, Dyspnea on Exertion , PND, Lower Extremity Edema, Orthopnea, Claudication Gastrointestinal: DENIES: Abdominal pain, Black stools, Bloody stools, Constipation, Diarrhea, Nausea, Vomiting, Difficulty Swallowing, Anorexia Genitourinary: DENIES: Sexual dysfunction, Urinary frequency, Urinary incontinence, Urgency, Hematuria, Dysuria, Nocturia, Penile Discharge, Testicular Pain, Testicular Swelling Musculoskeletal: DENIES: Joint pain, Muscle aches, Stiffness, Joint Swelling, Back pain, Neck pain Integumentary: DENIES: Abnormal pigmentation, Nail changes, Pruritus, Rash Hematologic/lymphatic: DENIES: Bruising, Lymphadenopathy Immunologic/allergic: DENIES: Eczema, Urticaria Neurologic: DENIES: Abnormal gait, Headache, Localized weakness, Paresthesias, Seizures, Speech Problems, Tremor, Poor Balance Psychiatric: DENIES: Anxiety, Confusion, Mood changes, Depression, Hallucinations, Agitation, Suicidal Ideation, Homicidal Ideation, Delusions Except as stated in HPI: all other systems reviewed are Neg Past Family Social History Allergies: Coded Allergies: Penicillins (Verified Allergy, Severe, 06/08/17) Past Medical History Type 2 DM Bilateral PE 05/30/17 Prostate Cancer s/p prostatectomy/radiation/chemotherapy Non-Hodgkin's Lymphoma Hyperlipidemia Nephrolithiasis Irregular HR Fungal pneumonia treated for 1 month many years back in [place] Past Surgical History Prostatectomy Port Placed Back Surgery with no hardware in place. Reported Medications Reported Meds & Active Scripts Active Metoprolol Tartrate 25 Mg Tab 25 Mg PO Q12HR 60 Days Xarelto (Rivaroxaban) 15 Mg Tab 15 Mg PO BID Take one 15 mg tab po BID for 21 days, then take 20 mg po qday for 6 months. Reported [Juice Plus] 6 Tab PO DAILY Meloxicam 15 Mg Tab 15 Mg PO DAILY Livalo (Pitavastatin) 2 Mg Tab 2 Mg PO EVERY OTHER DAY Gabapentin 600 Mg Tab 300 Mg PO QID Vitamin B Complex (B-Complex Vitamins) 1 Tab 1 Tab PO BID Metformin (Metformin HCl) 500 Mg Tab 250 Mg PO BIDPC Vitamin D3 (Cholecalciferol) 2,000 Unit Cap 2,000 Units PO BID Lisinopril 10 Mg Tab 10 Mg PO DAILY Active Ordered Medications Current Medications Medications (Trade) Dose Ordered Sig/Kari Route Start Time Stop Time Status Last Admin (Vitamin D3) 2,000 units BID PO 06/08/17 21:00 06/10/17 09:40 (Neurontin) 300 mg QID PO 06/08/17 18:00 06/10/17 18:13 (Prinivil) 10 mg DAILY PO 06/09/17 09:00 06/10/17 09:39 (Lopressor) 25 mg Q12HR PO 06/08/17 21:00 06/10/17 09:40 (Xarelto) 15 mg BID PO 06/08/17 21:00 06/10/17 09:40 (NS Flush) 2 ml UNSCH PRN IV FLUSH 06/08/17 17:45 (NS Flush) 2 ml BID IV FLUSH 06/08/17 21:00 06/10/17 09:41 (Tylenol) 650 mg Q4H PRN PO 06/08/17 17:45 (Zofran Inj) 4 mg Q6H PRN IVP 06/08/17 17:45 (Narcan Inj) 0.4 mg UNSCH PRN IV PUSH 06/08/17 17:45 (Lisbet-Colace) 1 tab BID PO 06/08/17 21:00 06/10/17 09:39 (Milk Of Magnesia Liq) 30 ml Q12H PRN PO 06/08/17 17:45 (Senokot) 17.2 mg Q12H PRN PO 06/08/17 17:45 (Dulcolax Supp) 10 mg DAILY PRN RECTAL 06/08/17 17:45 (Lactulose Liq) 30 ml DAILY PRN PO 06/08/17 17:45 (Duoneb Neb) 1 ampule Q4HR NEB PRN NEB 06/08/17 18:00 (D50w (Vial) Inj) 50 ml UNSCH PRN IV PUSH 06/08/17 18:00 (Glucagon Inj) 1 mg UNSCH PRN OTHER 06/08/17 18:00 (NovoLOG SUPPLEMENTAL SCALE) 1 ACHS SLIDING SCALE SQ 06/08/17 21:00 06/10/17 13:12 (Allbee C) 1 tab DAILY PO 06/09/17 09:00 06/10/17 09:40 (Pravachol) 40 mg EVERY OTHER DAY PO 06/10/17 09:00 06/10/17 09:39 ([place] 5-325 Mg) 1 tab Q4H PRN PO 06/08/17 20:15 (Levemir Inj) 8 units Q12HR SQ 06/09/17 21:00 06/10/17 09:48 (Levaquin) 750 mg DAILY PO 06/10/17 09:45 06/10/17 09:57 (Demadex) 20 mg DAILY PO 06/11/17 09:00 (KCl) 20 meq DAILY PO 06/11/17 09:00 Family History reviewed and NC to current ID problems. Social History Smoked for 22 years since age of 17 yrs. Quit many years back. No alcohol No Illicit drugs. Lives in [place]. 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 Lives in a rental condo. Both home and condo in good condition. No pets. [place] vet lived there for few years. Physical Exam Vital Signs Vital Signs Date Time Temp Pulse Resp B/P (MAP) Pulse Ox O2 Delivery O2 Flow Rate FiO2 06/10/17 16:00 97.3 68 20 97/58 (71) 94 06/10/17 12:00 97.5 65 20 101/54 (70) 93 06/10/17 11:54 98 Nasal Cannula 3.00 06/10/17 11:42 65 06/10/17 09:34 94 Nasal Cannula 3.00 06/10/17 08:00 97.5 61 20 108/67 (81) 93 06/10/17 08:00 61 06/10/17 04:00 97.6 50 18 102/55 (71) 92 06/10/17 03:54 57 06/10/17 00:05 62 06/10/17 00:00 97.5 59 16 103/58 (73) 92 06/09/17 22:00 Nasal Cannula 3.00 06/09/17 20:30 69 06/09/17 20:00 97.9 70 18 100/55 (70) 92 Physical Exam GENERAL: Obese,well-developed patient, in no apparent distress. SKIN: No rashes, ecchymoses or lesions. Cool and dry. HEAD: Atraumatic. Normocephalic. No temporal or scalp tenderness. EYES: Pupils equal round and reactive. Extraocular motions intact. No scleral icterus. No injection or drainage. ENT: Nose without bleeding, purulent drainage or septal hematoma. Throat without erythema, tonsillar hypertrophy or exudate. Uvula midline. Airway patent. NECK: Trachea midline. Supple, nontender, no meningeal signs. CARDIOVASCULAR: HS audible. RESPIRATORY: Clear to auscultation. Breath sounds equal bilaterally. GASTROINTESTINAL: Abdomen soft, non-tender, nondistended. MUSCULOSKELETAL: Extremities without clubbing, cyanosis, or edema. NEUROLOGICAL: Awake and alert. Cranial nerves II through XII intact. Motor and sensory grossly within normal limits. Five out of 5 muscle strength in all muscle groups. Normal speech. Psych cooperative IV line sites with no e.o infection. Laboratory Laboratory Tests Test 06/10/17 07:10 06/10/17 11:15 06/10/17 11:55 Blood Urea Nitrogen 43 Creatinine 1.33 Random Glucose 197 Calcium Level 9.6 Magnesium Level 2.4 Sodium Level 132 Potassium Level 4.6 Chloride Level 97 Carbon Dioxide Level 27.5 Anion Gap 8 Estimat Glomerular Filtration Rate 53 Urine Color YELLOW Urine Turbidity CLEAR Urine pH 5.0 Urine Specific [place] 1.013 Urine Protein NEG Urine Glucose (UA) 70 Urine Ketones NEG Urine Occult Blood NEG Urine Nitrite NEG Urine Bilirubin NEG Urine Urobilinogen LESS THAN 2.0 Urine Leukocyte Esterase NEG Urine RBC LESS THAN 1 Urine WBC 1 Urine Squamous Epithelial Cells <1 Urine Hyaline Casts 8 Microscopic Urinalysis Comment CULT NOT INDICATED Urine Random Creatinine 66.4 Urine Random Sodium 39 Erythrocyte Sedimentation Rate 13 C-Reactive Protein 1.50 Date/Time Source Procedure Growth Status 06/10/17 11:15 Urine Clean Catch Legionella Antigen - Final PRESUMPTIVE NEGATIVE FOR LEGIONELLA P... Complete Result Diagram: 06/09/17 0746 06/10/17 0710 Imaging Last Impressions Renal Ultrasound 06/10/17 0000 Signed Impressions: Service Date/Time: Saturday, June 10, 2017 12:10 - CONCLUSION: 1. Borderline increase in renal echogenicity which can be seen with medical renal disease. 2. Simple cyst left kidney. 3. Ptotic left kidney. Noah Miner MD CT Angiography 06/08/17 1150 Signed Impressions: Service Date/Time: Thursday, June 08, 2017 14:10 - CONCLUSION: 1. Decrease in size of pulmonary emboli bilaterally. 2. Increased bilateral pulmonary opacity with a combination of groundglass opacity and dependent consolidation. May represent pulmonary edema. Oumar Solano MD Assessment and Plan Assessment and Plan Ground glass opacities/basilar pneumonia/atelectasis: DDx: atypical pneumonia, fungal, PCP or TB or EVONNE related infiltrates. Bilateral PE (h/o travel from [place] to [facility] 15 hr flight in first week of May 2017) Ex smoker Sleep apnea on BiPAP CAD Pacemaker in place Port Recommendations Continue Levaquin for now Fungal blood cultures AFB blood culture Fungal antibodies Urine histoplasma antigen Blastomyces antibody Coccidiomycosis antigen Cryptococcal serum antigen d.w : consider tapering steroids if not a COPD exacerbation episode. Recommend repeat CT in approximately 2 weeks to assess if infiltrates persist or are resolved. If infiltrates are persistent depending on the pulmonary status at that time may consider a bronchoscopy to evaluate for possible fungal or AFB pneumonia. Discussed above with patient. d/w If cleared by Pulm ok to discharge from my standpoint. Recommend follow up with Dr.Reba Brown in clinic to follow up on repeat CT and ID workup. Dr.Reba Brown Will sign off please call back if any changes in clinical condition or questions. Candida Doyle MD Jun 10, 2017 19:13
--- NOTE | 2017-06-10 19:15 | HHI.PR ---
Subjective Remarks 72 YOWM with recent PE,TPA and cathetor directed Thrombolysis has worsening sob CTA Ground glass infilt Little better today tired Uses CPAP Objective Vital Signs Vital Signs Date Time Temp Pulse Resp B/P (MAP) Pulse Ox O2 Delivery O2 Flow Rate FiO2 06/10/17 19:14 63 06/10/17 16:00 97.3 68 20 97/58 (71) 94 06/10/17 12:00 97.5 65 20 101/54 (70) 93 06/10/17 11:54 98 Nasal Cannula 3.00 06/10/17 11:42 65 06/10/17 09:34 94 Nasal Cannula 3.00 06/10/17 08:00 97.5 61 20 108/67 (81) 93 06/10/17 08:00 61 06/10/17 04:00 97.6 50 18 102/55 (71) 92 06/10/17 03:54 57 06/10/17 00:05 62 06/10/17 00:00 97.5 59 16 103/58 (73) 92 06/09/17 22:00 Nasal Cannula 3.00 06/09/17 20:30 69 06/09/17 20:00 97.9 70 18 100/55 (70) 92 I/O 06/09/17 06/09/17 06/09/17 06/10/17 06/10/17 06/10/17 07:00 15:00 23:00 07:00 15:00 23:00 Intake Total 720 ml 480 ml Output Total 1000 ml 1200 ml Balance -1000 ml 720 ml -1200 ml 480 ml Intake Oral 720 ml 480 ml Output Urine Total 1000 ml 1200 ml # Voids 3 4 3 # Bowel Movements 0 1 Result Diagram: 06/09/17 0746 06/10/17 0710 Objective Remarks GENERAL: WBWN male, mild sob SKIN: Warm and dry. HEAD: Normocephalic. EYES: No scleral icterus. No injection or drainage. NECK: Supple, trachea midline. No JVD or lymphadenopathy. CARDIOVASCULAR: Regular rate and rhythm without murmurs, gallops, or rubs. RESPIRATORY: Breath sounds equal bilaterally. No accessory muscle use. GASTROINTESTINAL: Abdomen soft, non-tender, nondistended. MUSCULOSKELETAL: No cyanosis, or edema. BACK: Nontender without obvious deformity. No CVA tenderness. A/P Assessment and Plan Dysnoea Ground glass infilt CHF Recent PE HTN H/O ca prostate Ch back pain RANDELL PLAN: Supplement 02 Xarelto 15 mg bid Diurease Check Echo. DC Solumedrol Ambulate with PT DW Dr. Gio Pathak,Karl Srivastava MD Jun 10, 2017 19:15
--- NOTE | 2017-06-10 20:40 | HHI.PR ---
Subjective Remarks Patient seen this morning around 10 AM. He reports that breathing is a little better today. Denies any chest pain. Denies any nausea or vomiting. Positive bowel movement. Objective Vital Signs Date Time Temp Pulse Resp B/P (MAP) Pulse Ox O2 Delivery O2 Flow Rate FiO2 06/10/17 19:14 63 06/10/17 16:00 97.3 68 20 97/58 (71) 94 06/10/17 12:00 97.5 65 20 101/54 (70) 93 06/10/17 11:54 98 Nasal Cannula 3.00 06/10/17 11:42 65 06/10/17 09:34 94 Nasal Cannula 3.00 06/10/17 08:00 97.5 61 20 108/67 (81) 93 06/10/17 08:00 61 06/10/17 04:00 97.6 50 18 102/55 (71) 92 06/10/17 03:54 57 06/10/17 00:05 62 06/10/17 00:00 97.5 59 16 103/58 (73) 92 06/09/17 22:00 Nasal Cannula 3.00 I/O 06/09/17 06/09/17 06/09/17 06/10/17 06/10/17 06/10/17 06:59 14:59 22:59 06:59 14:59 22:59 Intake Total 720 ml 480 ml Output Total 1000 ml 1200 ml Balance -1000 ml 720 ml -1200 ml 480 ml Intake Oral 720 ml 480 ml Output Urine Total 1000 ml 1200 ml # Voids 3 4 3 # Bowel Movements 0 1 Result Diagram: 06/09/17 0746 06/10/17 0710 Objective Remarks GENERAL: Patient sitting up in bed. Appears comfortable. SKIN: Warm and dry. HEAD: Normocephalic. EYES: No scleral icterus. No injection or drainage. NECK: Supple, trachea midline. No JVD. CARDIOVASCULAR: Regular rate and rhythm without murmurs, gallops, or rubs. RESPIRATORY: Breath sounds equal bilaterally. No accessory muscle use. Rales bilaterally at the bases much improved today. GASTROINTESTINAL: Abdomen soft, non-tender, nondistended. MUSCULOSKELETAL: No cyanosis, or edema. BACK: Nontender without obvious deformity. No CVA tenderness. A/P Assessment and Plan Mr. Chan is a pleasant 72 y/o male with a recent saddle PE diagnosed 05/30/17 who is on Xarelto and presented to the ED on 06/08/16 with worsening shortness of breath and fatigue. He was found to have decreased size of bilateral PEs and bilateral pulmonary opacities, ground-glass opacity, and dependent consolidation possibly representing pulmonary edema. Dr. Pathak has seen the patient and thinks he may have hypersensitivity pneumonia and has started a course of IV steroids. //Possible CHF on imaging vs hypersensitivity pneumonia (per sales representative education courses evaluation) //Suspected hypersensitivity pneumonia versus atypical pneumonia. - IV steroids per Dr. Pathak - IV Lasix 40 mg BID - BNP not elevated - 9 on admission - Duonebulizers q4h PRN sob/wheezing - Pulmonary consult appreciated - Cardiology consulted - 2D echocardiogram to evaluate cardiac structure and function - Troponin I < 0.02 x 2 so far = Pending echocardiogram. Continue IV steroids. Appreciate pulmonary and cardiology assistance. = 06/10. Echocardiogram with normal ejection fraction, normal range pulmonary pressures, mild valvulopathy. I have ordered urine histoplasma, Legionella antigen testing. Started on Levaquin. I discussed with infectious disease, who has ordered further testing to rule out atypical pneumonia. Discontinue diuresis secondary to elevated creatinine. //Acute kidney injury. Creatinine up to 1.3. Likely secondary to diuresis. Hold lisinopril, diuretics. Ultrasound kidney without hydronephrosis. Recheck tomorrow. //Bilateral PE - reduced in size on imaging - continue home Xarelto //Type 2 DM - accuchecks ac and hs with low dose Novolog sliding scale coverage - monitor blood glucose trends and adjust treatment accordingly = 06/09. Blood sugars elevated in the 300s today. We'll add Levemir. Continue to monitor = 06/10. Blood sugars elevated today up to 300s, however expect to improve on steroid tapering. //Headaches - will provide analgesia and monitor - patient reports history of tension headaches as he is currently experiencing - no neuro deficits noted - consider Head CT if symptoms persist = 06/09. Headaches improved //RUQ pain, mild, not reproducible with palpation - CMP in a.m. and review LFTs when resulted = 06/09. LFTs unremarkable. denies pain at this time. = Resolved. //DVT prophylaxis - on Xarelto Discharge Planning Pending further improvement. Cardiology and pulmonology following. PT following. Kieran Faulkner MD Jun 10, 2017 20:40
[2017-06-11] VITALS: BP 95/52; PULSE 59; RESP 18; TEMP 97.7; O2SAT 96
[2017-06-11 03:55] VITALS: PULSE 60
[2017-06-11 04:00] VITALS: BP 93/53; PULSE 58; RESP 16; TEMP 97.6; O2SAT 94
[2017-06-11 07:27] LABS: BICARBONATE 27.6 MEQ/L (21.0-32.0); CALCIUM 9.3 MG/DL (8.5-10.1); CREATININE 1.07 MG/DL (0.60-1.30)
[2017-06-11 08:00] VITALS: BP 112/66; PULSE 60; PULSE 61; RESP 20; TEMP 97.8; O2SAT 95
[2017-06-11] MEDS: INSULIN ASPART SUPPLEMENTAL SCALE SQ SCH ×2 (08:00→12:00)
[2017-06-11] MEDS: CHOLECALCIFEROL (VIT D3) 1000 UNIT TAB PO SCH (08:48)
[2017-06-11] MEDS: GABAPENTIN 300 MG CAP PO SCH ×2 (08:48→12:38)
[2017-06-11] MEDS: VITAMIN B COMPLEX/VIT C TAB PO SCH (08:48)
[2017-06-11] MEDS: LEVOFLOXACIN 750 MG TAB PO SCH (08:48)
[2017-06-11] MEDS: METOPROLOL TARTRATE 25 MG TAB PO SCH (08:48)
[2017-06-11] MEDS: DOCUSATE SODIUM 50 MG/SENNA 8.6 MG TAB PO SCH (08:49)
[2017-06-11] MEDS: RIVAROXABAN 15 MG TAB PO SCH (08:49)
[2017-06-11] MEDS: INSULIN DETEMIR 100 UNITS/ML VIAL SQ SCH (08:50)
[2017-06-11] MEDS: SODIUM CHLORIDE 0.9% FLUSH 10 ML FLUSH IV FLUSH SCH (08:50)
[2017-06-11] MEDS ORDERED: TORSEMIDE 20 MG TAB PO SCH (09:00)
[2017-06-11] MEDS ORDERED: POTASSIUM CHLORIDE 20 MEQ CONTROLLED RELEASE TAB PO SCH (09:00)
[2017-06-11 12:00] VITALS: BP 122/65; PULSE 65; PULSE 66; RESP 18; TEMP 97.6; O2SAT 99
[2017-06-11 12:22] VITALS: BP 112/66; PULSE 61; RESP 20; TEMP 97.8; O2SAT 95
--- NOTE | 2017-06-11 12:35 | HHI.PR ---
Subjective Remarks Doing well. Denies any chest pain. says that shortness of breath is much improved. Objective Vital Signs Date Time Temp Pulse Resp B/P (MAP) Pulse Ox O2 Delivery O2 Flow Rate FiO2 06/11/17 12:22 97.8 61 20 112/66 (81) 95 06/11/17 12:00 97.6 66 18 122/65 (84) 99 06/11/17 08:00 60 06/11/17 07:51 Nasal Cannula 3.00 06/11/17 07:00 Nasal Cannula 3.00 06/11/17 04:00 97.6 58 16 93/53 (66) 94 06/11/17 03:55 60 06/11/17 00:00 97.7 59 18 95/52 (66) 96 06/10/17 23:56 60 06/10/17 21:05 95 Nasal Cannula 3.00 06/10/17 20:30 Nasal Cannula 3.00 06/10/17 20:00 97.8 66 18 106/62 (77) 93 06/10/17 19:52 63 06/10/17 19:14 63 06/10/17 16:00 97.3 68 20 97/58 (71) 94 I/O 06/10/17 06/10/17 06/10/17 06/11/17 06/11/17 06/11/17 07:00 15:00 23:00 07:00 15:00 23:00 Intake Total 480 ml Output Total 1200 ml 600 ml Balance -1200 ml 480 ml -600 ml Intake Oral 480 ml Output Urine Total 1200 ml 600 ml # Voids 3 # Bowel Movements 1 Result Diagram: 06/09/17 0746 06/11/17 0610 Objective Remarks GENERAL: Patient sitting up in bed. Appears comfortable. Still observe patient walking around the unit without difficulty. SKIN: Warm and dry. HEAD: Normocephalic. EYES: No scleral icterus. No injection or drainage. NECK: Supple, trachea midline. No JVD. CARDIOVASCULAR: Regular rate and rhythm without murmurs, gallops, or rubs. RESPIRATORY: Breath sounds equal bilaterally. No accessory muscle use. No rales today. GASTROINTESTINAL: Abdomen soft, non-tender, nondistended. MUSCULOSKELETAL: No cyanosis, or edema. BACK: Nontender without obvious deformity. No CVA tenderness. A/P Assessment and Plan //Possible CHF on imaging vs hypersensitivity pneumonia (per forging engineer evaluation) //Suspected hypersensitivity pneumonia versus atypical pneumonia. - IV steroids per Dr. Pathak - IV Lasix 40 mg BID - BNP not elevated - 9 on admission - Duonebulizers q4h PRN sob/wheezing - Pulmonary consult appreciated - Cardiology consulted - 2D echocardiogram to evaluate cardiac structure and function - Troponin I < 0.02 x 2 so far = Pending echocardiogram. Continue IV steroids. Appreciate pulmonary and cardiology assistance. = 06/10. Echocardiogram with normal ejection fraction, normal range pulmonary pressures, mild valvulopathy. I have ordered urine histoplasma, Legionella antigen testing. Started on Levaquin. I discussed with infectious disease, who has ordered further testing to rule out atypical pneumonia. Discontinue diuresis secondary to elevated creatinine. = Discussed with infectious disease and pulmonology. Patient cleared for discharge. Follow-up with infectious disease and pulmonology as outpatient. Levaquin to complete treatment course. Low-dose diuretics to go home. //Acute kidney injury. Creatinine up to 1.3. Likely secondary to diuresis. Hold lisinopril, diuretics. Ultrasound kidney without hydronephrosis. Recheck tomorrow. = 1.0. Much improved. //Bilateral PE - reduced in size on imaging - continue home Xarelto //Type 2 DM - accuchecks ac and hs with low dose Novolog sliding scale coverage - monitor blood glucose trends and adjust treatment accordingly = 06/09. Blood sugars elevated in the 300s today. We'll add Levemir. Continue to monitor = 06/10. Blood sugars elevated today up to 300s, however expect to improve on steroid tapering. = Blood sugars much improved off steroids. //Headaches - will provide analgesia and monitor - patient reports history of tension headaches as he is currently experiencing - no neuro deficits noted - consider Head CT if symptoms persist = 06/09. Headaches improved //RUQ pain, mild, not reproducible with palpation - CMP in a.m. and review LFTs when resulted = 06/09. LFTs unremarkable. denies pain at this time. = Resolved. Discharge Planning Discharge home today. Kieran Faulkner MD Jun 11, 2017 12:35
[2017-06-11] MEDS ORDERED: TORS1TAB12 PO (12:40)
[2017-06-11] MEDS ORDERED: NEUR300C PO (12:40)
[2017-06-11] MEDS ORDERED: LEVA750T9 PO (12:40)
[2017-06-11] MEDS ORDERED: VENTAER INH (12:41)
--- NOTE | 2017-06-11 12:45 | HHI.DS ---
Discharge Summary Admission Date Jun 08, 2017 at 17:33 Discharge Date: Jun 11, 2017 Admitting Diagnosis hypoxia, CHF (1) CHF (congestive heart failure) ICD Code: I50.9 - Heart failure, unspecified Status: Acute (2) Bilateral pulmonary embolism ICD Code: I26.99 - Other pulmonary embolism without acute cor pulmonale Procedures no Invasive procedures. Brief History - From Admission Mr. Chan is a pleasant 72 y/o male with a recent saddle PE diagnosed 05/30/17 who is on Xarelto and presented to the ED on 06/08/16 with worsening shortness of breath and fatigue. He was found to have decreased size of bilateral PEs and bilateral pulmonary opacities, ground-glass opacity, and dependent consolidation possibly representing pulmonary edema. Dr. Pathak has seen the patient and thinks he may have hypersensitivity pneumonia and has started a course of IV steroids. The patient is seen in his hospital room with his at his bedside. He reports that he has had fatigue persisting since discharge from hospital on 06/03. He denies any chest pain or peripheral edema. He has also been having tension headaches since discharge - he's had them in the past and the headaches he's been having since discharge are the same. He denies N/V/Diarrhea. He has also been having some mild right upper quadrant pain that is worse with movement - not reproducible with palpation. I have ordered a CMP in a.m. to review LFTs. CBC/BMP: 06/09/17 0746 06/11/17 0610 Significant Findings Laboratory Tests Test 06/08/17 21:00 06/09/17 02:52 06/09/17 07:46 06/10/17 07:10 Troponin I LESS THAN 0.02 NG/ML LESS THAN 0.02 NG/ML Neutrophils (%) (Auto) 89.7 % (16.0-70.0) Lymphocytes (%) (Auto) 7.1 % (9.0-44.0) Lymphocytes # (Auto) 0.5 TH/MM3 (1.0-4.8) Blood Urea Nitrogen 21 MG/DL (7-18) 43 MG/DL (7-18) Random Glucose 187 MG/DL (74-106) 197 MG/DL (74-106) Aspartate Amino Transf (AST/SGOT) 14 U/L (15-37) Sodium Level 134 MEQ/L (136-145) 132 MEQ/L (136-145) Chloride Level 97 MEQ/L (98-107) 97 MEQ/L (98-107) Estimat Glomerular Filtration Rate 68 ML/MIN (>89) 53 ML/MIN (>89) Creatinine 1.33 MG/DL (0.60-1.30) Test 06/10/17 11:15 06/10/17 11:55 06/11/17 06:10 06/11/17 06:40 Urine Glucose (UA) 70 mg/dL (NEG) C-Reactive Protein 1.50 MG/DL (0.00-0.30) Blood Urea Nitrogen 41 MG/DL (7-18) Random Glucose 172 MG/DL (74-106) Estimat Glomerular Filtration Rate 68 ML/MIN (>89) Imaging Last Impressions Renal Ultrasound 06/10/17 0000 Signed Impressions: Service Date/Time: Saturday, June 10, 2017 12:10 - CONCLUSION: 1. Borderline increase in renal echogenicity which can be seen with medical renal disease. 2. Simple cyst left kidney. 3. Ptotic left kidney. Noah Miner MD CT Angiography 06/08/17 1150 Signed Impressions: Service Date/Time: Thursday, June 08, 2017 14:10 - CONCLUSION: 1. Decrease in size of pulmonary emboli bilaterally. 2. Increased bilateral pulmonary opacity with a combination of groundglass opacity and dependent consolidation. May represent pulmonary edema. Oumar Solano MD Hospital Course Mr. Chan is a pleasant 72 y/o male with a recent saddle PE diagnosed 05/30/17 who is on Xarelto and presented to the ED on 06/08/16 with worsening shortness of breath and fatigue. He was found to have decreased size of bilateral PEs and bilateral pulmonary opacities, ground-glass opacity, and dependent consolidation possibly representing pulmonary edema. Dr. Pathak has seen the patient and thinks he may have hypersensitivity pneumonia and has started a course of IV steroids. BNP however within the normal range, and echocardiogram within normal range as well. Testing for atypical pneumonia was ordered as per infectious disease benefits consultant. Appreciate assistance. Patient also developed acute kidney injury with creatinine up to 1.3, however improved with discontinuation of diuresis. Patient was discharged home on Levaquin to complete treatment course, follow-up with pulmonology, infectious disease, cardiology as outpatient. For problem-based summary from most recent progress note, please see below. //Possible CHF on imaging vs hypersensitivity pneumonia (per special library librarian evaluation) //Suspected hypersensitivity pneumonia versus atypical pneumonia. - IV steroids per Dr. Pathak - IV Lasix 40 mg BID - BNP not elevated - 9 on admission - Duonebulizers q4h PRN sob/wheezing - Pulmonary consult appreciated - Cardiology consulted - 2D echocardiogram to evaluate cardiac structure and function - Troponin I < 0.02 x 2 so far = Pending echocardiogram. Continue IV steroids. Appreciate pulmonary and cardiology assistance. = 06/10. Echocardiogram with normal ejection fraction, normal range pulmonary pressures, mild valvulopathy. I have ordered urine histoplasma, Legionella antigen testing. Started on Levaquin. I discussed with infectious disease, who has ordered further testing to rule out atypical pneumonia. Discontinue diuresis secondary to elevated creatinine. = Discussed with infectious disease and pulmonology. Patient cleared for discharge. Follow-up with infectious disease and pulmonology as outpatient. Levaquin to complete treatment course. Low-dose diuretics to go home. //Acute kidney injury. Creatinine up to 1.3. Likely secondary to diuresis. Hold lisinopril, diuretics. Ultrasound kidney without hydronephrosis. Recheck tomorrow. = 1.0. Much improved. //Bilateral PE - reduced in size on imaging - continue home Xarelto //Type 2 DM - accuchecks ac and hs with low dose Novolog sliding scale coverage - monitor blood glucose trends and adjust treatment accordingly = 06/09. Blood sugars elevated in the 300s today. We'll add Levemir. Continue to monitor = 06/10. Blood sugars elevated today up to 300s, however expect to improve on steroid tapering. = Blood sugars much improved off steroids. //Headaches - will provide analgesia and monitor - patient reports history of tension headaches as he is currently experiencing - no neuro deficits noted - consider Head CT if symptoms persist = 06/09. Headaches improved //RUQ pain, mild, not reproducible with palpation - CMP in a.m. and review LFTs when resulted = 06/09. LFTs unremarkable. denies pain at this time. = Resolved. //DVT prophylaxis - on Xarelto Discharge Planning Pending further improvement. Cardiology and pulmonology following. PT following. Pt Condition on Discharge: Good Discharge Disposition: Discharge Home Discharge Time: > 30 minutes Discharge Instructions DIET: Follow Instructions for: Diabetic Diet Activities you can perform: Regular-No Restrictions Follow up Referrals: Appointment for Follow Up - 10 Days @ [facility] [place] with MD Dr.Reba Kevin Vora Cardiology - 1 Week with Jaime Landin DO PCP Follow-up - 1 Week Pulmonology - 1 Week with Karl Pathak MD New Medications: Albuterol 18 GM Inh (Ventolin Hfa 18 GM Inh) 90 Mcg/Act Aer 2 PUFF INH Q4-6H PRN for SHORTNESS OF BREATH, #1 INHALER 0 Refills Gabapentin (Neurontin) 300 Mg Cap 300 MG PO TID for neuropathy for 30 Days, CAP Levofloxacin (Levaquin) 750 Mg Tablet 750 MG PO DAILY for Infection, #4 TAB Torsemide (Demadex) 20 Mg Tab 20 MG PO DAILY for water pill for 30 Days, #30 TAB Continued Medications: B-Complex Vitamins (Vitamin B Complex) 1 Tab 1 TAB PO BID Cholecalciferol (Vitamin D3) 2,000 Unit Cap 2000 UNITS PO BID for Nutritional Supplement, #1 BOTTLE 0 Refills Metformin (Metformin) 500 Mg Tab 250 MG PO BIDPC for Blood Sugar Management, #60 TAB 0 Refills Metoprolol Tartrate (Metoprolol Tartrate) 25 Mg Tab 25 MG PO Q12HR for Heart rate control for 60 Days, TAB 3 Refills Pitavastatin (Livalo) 2 Mg Tab 2 MG PO EVERY OTHER DAY for Cholesterol Management, #30 TAB 0 Refills Rivaroxaban (Xarelto) 15 Mg Tab 15 MG PO BID for Blood Clot Prevention, #42 TAB Take one 15 mg tab po BID for 21 days, then take 20 mg po qday for 6 months. Discontinued Medications: Gabapentin (Gabapentin) 600 Mg Tab 300 MG PO QID, #60 TAB 0 Refills Lisinopril (Lisinopril) 10 Mg Tab 10 MG PO DAILY, #30 TAB 0 Refills Meloxicam (Meloxicam) 15 Mg Tab 15 MG PO DAILY for Arthritis Pain, #30 TAB 0 Refills [Juice Plus] () 6 TAB PO DAILY Kieran Faulkner MD Jun 11, 2017 12:45
--- NOTE | 2017-06-11 12:50 | HHI.IDPN ---
Subjective Subjective Allergies: Coded Allergies: Penicillins (Verified Allergy, Severe, 06/08/17) Objective . Vital Signs Date Time Temp Pulse Resp B/P (MAP) Pulse Ox O2 Delivery O2 Flow Rate FiO2 06/11/17 12:22 97.8 61 20 112/66 (81) 95 06/11/17 12:00 97.6 66 18 122/65 (84) 99 06/11/17 08:00 60 06/11/17 08:00 97.8 61 20 112/66 (81) 95 06/11/17 07:51 Nasal Cannula 3.00 06/11/17 07:00 Nasal Cannula 3.00 06/11/17 04:00 97.6 58 16 93/53 (66) 94 06/11/17 03:55 60 06/11/17 00:00 97.7 59 18 95/52 (66) 96 06/10/17 23:56 60 06/10/17 21:05 95 Nasal Cannula 3.00 06/10/17 20:30 Nasal Cannula 3.00 06/10/17 20:00 97.8 66 18 106/62 (77) 93 06/10/17 19:52 63 06/10/17 19:14 63 06/10/17 16:00 97.3 68 20 97/58 (71) 94 . Laboratory Tests Test 06/10/17 11:55 Erythrocyte Sedimentation Rate 13 mm/hr Laboratory Tests Test 06/10/17 07:10 06/10/17 11:55 06/11/17 06:10 Blood Urea Nitrogen 43 MG/DL 41 MG/DL Creatinine 1.33 MG/DL 1.07 MG/DL Random Glucose 197 MG/DL 172 MG/DL Calcium Level 9.6 MG/DL 9.3 MG/DL Magnesium Level 2.4 MG/DL Sodium Level 132 MEQ/L 137 MEQ/L Potassium Level 4.6 MEQ/L 5.0 MEQ/L Chloride Level 97 MEQ/L 102 MEQ/L Carbon Dioxide Level 27.5 MEQ/L 27.6 MEQ/L Anion Gap 8 MEQ/L 7 MEQ/L Estimat Glomerular Filtration Rate 53 ML/MIN 68 ML/MIN C-Reactive Protein 1.50 MG/DL Microbiology Date/Time Source Procedure Growth Status 06/11/17 06:06 Blood Peripheral Blood Fungal Culture Pending Received 06/11/17 06:06 Blood Peripheral Blood Fungal Culture Pending Received 06/11/17 06:00 Blood Peripheral Mycobacterial Culture Pending Received 06/10/17 11:15 Urine Clean Catch Legionella Antigen - Final PRESUMPTIVE NEGATIVE FOR LEGIONELLA P... Complete Candida Doyle MD Jun 11, 2017 12:50
[2017-06-11 20:21] LABS: HISTOPLASMA ANTIGEN UR RESULT Negative (Negative)
[2017-06-13 15:48] LABS: MITOGEN MINUS NIL RESULT 5.78 IU/mL; NIL RESULT 0.01 IU/mL; QUANTIFERON TB GOLD RESULT Negative (Negative)
[2017-06-16 19:52] LABS: ASPERGILLUS FLAVUS AB NEGATIVE (NEGATIVE); ASPERGILLUS FUMIGATUS AB NEGATIVE (NEGATIVE); ASPERGILLUS NIGER AB NEGATIVE (NEGATIVE)
== END 2017-06-11 14:43 | disposition home or self-care (01) | DRG 291 ==
LOC: NEPE 11:27 → NEDA 17:33 → N04B 18:43
PROVIDERS: ADMIT Internal Medicine; ATTEND Internal Medicine
DX: I11.0 Hypertensive heart disease with heart failure (principal); I26.99 Other pulmonary embolism without acute cor pulmonale; N17.9 Acute kidney failure, unspecified; J18.8 Other pneumonia, unspecified organism; I50.9 Heart failure, unspecified; Z79.02 Long term (current) use of antithrombotics/antiplatelets; E11.9 Type 2 diabetes mellitus without complications; Z79.84 Long term (current) use of oral hypoglycemic drugs; G44.209 Tension-type headache, unspecified, not intractable; G47.33 Obstructive sleep apnea (adult) (pediatric); R10.11 Right upper quadrant pain; I25.10 Atherosclerotic heart disease of native coronary artery without angina pectoris; E78.5 Hyperlipidemia, unspecified; Z95.0 Presence of cardiac pacemaker; Z85.46 Personal history of malignant neoplasm of prostate; Z92.21 Personal history of antineoplastic chemotherapy; Z92.3 Personal history of irradiation; Z85.72 Personal history of non-Hodgkin lymphomas; Z88.0 Allergy status to penicillin; Z87.891 Personal history of nicotine dependence
CPT/HCPCS: 71275; 76775; 80048; 80053; 81001; 82570; 82948; 83735; 83880; 84300; 84484; 85025; 85610; 85652; 85730; 86140; 86355; 86357; 86359; 86360; 86480; 86606; 86612; 86635; 86738; 87103; 87116; 87385; 87449; 87899; 93005; 93306; 94150; 94618; 94667; 94668; 96374; 96375; J1815; J1940; J2270; J2405; J2920; Q9967